=== PATIENT | female | born 1960 | race Caucasian/White ===

== ENCOUNTER 2016-10-30 16:14 | Inpatient (IN) | payer MEDICARE, MEDICAID ==
[~2016-10-30] VITALS: Ht 165.1 cm; Wt 110.0 kg
[2016-10-30] VITALS (13 sets, daily range): BP systolic 76–142; BP diastolic 44–84; PULSE 63–82; RESP 18–20; TEMP 97.6–98.4; O2SAT 95–99
[~2016-10-30 16:14] MED LIST: ABIL5TAB6 PO; ALBU1AER INH; ALLO100 PO; ATEN50 PO; ATOR40TA49 PO; COMMODE 3:1; CYMB30CA PO; DUONI INH; HCTZ25 PO; HYDR-3580 PO; ISOS30 PO; KCL10 PO; LOSA50 PO; LYRI150C PO; PRED10 PO; PROT40TA PO; TIOT18I INH; WHEELCHAIR RENTAL RA; Z.0.COMMODE-3:1; Z.0.CPM; Z.0.WALKERFRONT
--- NOTE | 2016-10-30 16:37 | PD ---
HPI Chief Complaint: Chest Pain Time Seen by Provider: 16:29 Travel History International Travel<30 days: No Contact w/Intl Traveler<30days: No Traveled to known affect area: No History of Present Illness HPI This 55-year-old female is complaining of chest pain. She says the pain started around 3 this afternoon. She has a history of coronary artery disease. She has stents placed on 2 occasions he thinks in 2002 2009 last 2 months she' s been having increasing chest pain. She generally gets relief with nitroglycerin but the nitroglycerin did not help today. She had a stress test yesterday at Dr. Garcia. She does smoke cigarettes. She has been short of breath. The pain does go up the left side of her neck PFS Past Medical History Arthritis: Yes (HIP/BILAT KNEES) Asthma: No Atrial Fibrillation: Yes Autoimmune Disease: No Blood Disorders: No Anxiety: Yes Depression: Yes Heart Rhythm Problems: Yes (a fib) Cancer: Yes (LEFT KIDNEY ) Cardiac Catheterization: Yes Cardiovascular Problems: Yes High Cholesterol: Yes Chemotherapy: No Chest Pain: No Congestive Heart Failure: No COPD: Yes Cerebrovascular Accident: No Coronary Artery Disease: Yes Diabetes: No Diminished Hearing: No Endocrine: No GERD: No Glaucoma: No Genitourinary: Yes Headaches: Yes Hepatitis: No Hiatal Hernia: No Hypertension: Yes Immune Disorder: No Implanted Vascular Access Dvce: Yes Kidney Stones: No Musculoskeletal: Yes (ARTHRITIS, OSTEOPOROSIS) Neurologic: No Psychiatric: Yes (ANXIETY/ DEPRESSION) Reproductive: No Respiratory: Yes Integumentary: Yes (BILAT LEGS/FEET SKIN GRAFT DONE R/T COLES) Immunizations Current: Yes Migraines: No Myocardial Infarction: No Radiation Therapy: No Renal Failure: No Seizures: No Sickle Cell Disease: No Sleep Apnea: Yes Thyroid Disease: No Ulcer: No Influenza Vaccination: Yes ?: Not Menopausal: Yes : 2 Para: 1 Miscarriage: 1 Ovarian Cysts: Yes Past Surgical History Abdominal Surgery: Yes (JEJUNAL ABSCESS EXC.) AICD: No Appendectomy: No Arteriovenous Shunt: No Body Medical Devices: CARDIAC STENTS Cardiac Surgery: Yes ( STENT PLACED/CARDIAC CATH FEB (CHEST PAIN CTR) ) Cholecystectomy: No Coronary Artery Bypass Graft: No Coronary Stent: Yes (2003 ONE STENT PLACED) Ear Surgery: No Endocrine Surgery: No Eye Surgery: No Genitourinary Surgery: Yes (PARTIAL LEFT NEPHRECTOMY) Gynecologic Surgery: Yes (LUMPECTOMY LT. BREAST BENIGN) Insulin Pump: No Joint Replacement: Yes (lt knee) Oral Surgery: No Pacemaker: No Thoracic Surgery: No Other Surgery: Yes (BILAT LEGS SKIN GRAFT BURN) Family History Family Myocardial Infarction: Yes (BROTHER, MOTHER, DAD) Social History Alcohol Use: Yes ("WEEKENDS") Tobacco Use: Yes (1/2 PPD) Substance Use: No Allergies-Medications (Allergen,Severity, Reaction): Coded Allergies: Bacitracin (Verified Allergy, Severe, Rash, 10/30/16) Darvocet-N 100 (Unverified Allergy, Severe, 10/30/16) Morphine (Verified Allergy, Severe, Itching, 10/30/16) *MDRO Multi-Drug Resistant Organism (Verified Adverse Reaction, Unknown, 07/11/15) 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 Nitrostat SL (Nitroglycerin) 0.4 Mg Subl 0.4 Mg SL DIRECTED PRN 1 tablet under the tongue as needed for chest pain. Repeat every 5 minutes for a total of 3 DOSES or call 911 if NO relief. Proair Hfa 8.5 GM Inh (Albuterol Sulfate) 90 Mcg/Act Aer 2 Puff INH Q6H PRN 108 mcg/actuation Zetia (Ezetimibe) 10 Mg Tab 10 Mg PO DAILY Abilify (Aripiprazole) 5 Mg Tab 5 Mg PO DAILY Symbicort Inh (Budesonide/Formoterol Fumarate) 80-4.5 Mcg/Act Aero 1 Puff INH Q12HR Atenolol 50 Mg Tab 50 Mg PO DAILY Atorvastatin (Atorvastatin Calcium) 40 Mg Tab 40 Mg PO DAILY Cymbalta DR (Duloxetine HCl) 30 Mg Capdr 30 Mg PO DAILY Lisinopril 10 Mg Tab 10 Mg PO DAILY Aspirin 325 Mg Tab 325 Mg PO DAILY Review of Systems General / Constitutional: No: Fever, Chills Eyes: No: Diploplia, Blurred Vision HENT: No: Headaches, Vertigo Cardiovascular: Positive: Chest Pain or Discomfort, No: Palpitations, Irregular Rhythm Respiratory: No: Cough, Shortness of Breath Gastrointestinal: No: Vomiting, Diarrhea Genitourinary: No: Urgency, Frequency Musculoskeletal: No: Myalgias, Arthralgias Skin: No Rash Neurologic: No: Weakness, Dizziness Hematologic/Lymphatic: No: Easy Bruising Physical Exam Narrative GENERAL: Well-developed female SKIN: Focused skin assessment warm/dry. HEAD: Atraumatic. Normocephalic. EYES: Pupils equal and round. No scleral icterus. No injection or drainage. ENT: No nasal bleeding or discharge. Mucous membranes pink and moist. NECK: Trachea midline. No JVD. CARDIOVASCULAR: Regular rate and rhythm. No murmur appreciated. RESPIRATORY: No accessory muscle use. Clear to auscultation. Breath sounds equal bilaterally. GASTROINTESTINAL: Abdomen soft, non-tender, nondistended. Hepatic and splenic margins not palpable. MUSCULOSKELETAL: No obvious deformities. No clubbing. No cyanosis. No edema. NEUROLOGICAL: Awake and alert. No obvious cranial nerve deficits. Motor grossly within normal limits. Normal speech. PSYCHIATRIC: Appropriate mood and affect; insight and judgment normal. Data Data Last Documented VS Vital Signs Date Time Temp Pulse Resp B/P Pulse Ox O2 Delivery O2 Flow Rate FiO2 10/30/16 17:09 69 18 106/68 97 Nasal Cannula 2 10/30/16 16:15 97.6 Orders Electrocardiogram (10/30/16 16:26) Complete Blood Count With Diff (10/30/16 16:26) Basic Metabolic Panel (Bmp) (10/30/16 16:26) Ckmb (Isoenzyme) Profile (10/30/16 16:26) Troponin I (10/30/16 16:26) Chest, Single Ap (10/30/16 16:26) Iv Access Insert/Monitor (10/30/16 16:26) Ecg Monitoring (10/30/16 16:26) Oxygen Administration (10/30/16 16:26) Oximetry (10/30/16 16:26) Prothrombin Time / Inr (Pt) (10/30/16 16:34) Act Partial Throm Time (Ptt) (10/30/16 16:34) Bilateral Bp Monitoring (10/30/16 16:34) Nitroglycerin 2% Oint (Nitroglycerin 2% (10/30/16 16:45) Sodium Chloride 0.9% Flush (Ns Flush) (10/30/16 16:45) Nitroglycerin Sl (Nitrostat Sl) (10/30/16 16:45) Ondansetron Inj (Zofran Inj) (10/30/16 16:45) Hydromorphone Pf Inj (Dilaudid Pf Inj) (10/30/16 16:45) Sodium Chlorid 0.9% 500 Ml Inj (Ns 500 M (10/30/16 17:00) Magnesium (Mg) (10/30/16 16:34) CKMB (10/30/16 16:34) CKMB% (10/30/16 16:34) Labs Laboratory Tests Test 10/30/16 16:34 White Blood Count 7.4 TH/MM3 Red Blood Count 5.06 MIL/MM3 Hemoglobin 15.0 GM/DL Hematocrit 45.9 % Mean Corpuscular Volume 90.7 FL Mean Corpuscular Hemoglobin 29.7 PG Mean Corpuscular Hemoglobin 32.8 % Concent Red Cell Distribution Width 13.1 % Platelet Count 237 TH/MM3 Mean Platelet Volume 8.5 FL Neutrophils (%) (Auto) 63.7 % Lymphocytes (%) (Auto) 27.8 % Monocytes (%) (Auto) 4.7 % Eosinophils (%) (Auto) 3.2 % Basophils (%) (Auto) 0.6 % Neutrophils # (Auto) 4.8 TH/MM3 Lymphocytes # (Auto) 2.1 TH/MM3 Monocytes # (Auto) 0.3 TH/MM3 Eosinophils # (Auto) 0.2 TH/MM3 Basophils # (Auto) 0.0 TH/MM3 CBC Comment DIFF FINAL Differential Comment Prothrombin Time 10.4 SEC Prothromb Time International 0.9 RATIO Ratio Activated Partial 27.8 SEC Thromboplast Time Sodium Level 143 MEQ/L Potassium Level 3.4 MEQ/L Chloride Level 106 MEQ/L Carbon Dioxide Level 26.7 MEQ/L Anion Gap 10 MEQ/L Blood Urea Nitrogen 5 MG/DL Creatinine 1.10 MG/DL Estimat Glomerular Filtration 51 ML/MIN Rate Random Glucose 213 MG/DL Calcium Level 8.6 MG/DL Magnesium Level 2.2 MG/DL Total Creatine Kinase 117 U/L Creatine Kinase MB 2.8 NG/ML Troponin I LESS THAN 0.02 NG/ML MDM Medical Decision Making Medical Screen Exam Complete: Yes Emergency Medical Condition: Yes Medical Record Reviewed: Yes Differential Diagnosis Differential includes atypical chest pain, unstable angina, and nSTEMI Narrative Course EKG shows ectopic atrial rhythm. There are no ST-T wave elevations. Patient was given nitroglycerin and Nitropaste and had a transient drop in her blood pressure. Lipase was removed. Patient continues to have pain off and on area I have discussed the case with Dr. Cody covering for Dr. He recommends transfer to [facility], heparin drip Diagnosis Primary Impression: Unstable angina Admitting Information Admitting Physician Requests: Admit Gideon Forbes MD Oct 30, 2016 16:37
[2016-10-30] MEDS ORDERED: NITR0.4S SL (16:44)
[2016-10-30] MEDS ORDERED: ALLO100T PO (16:44)
[2016-10-30] MEDS ORDERED: LISI10TA3 PO (16:44)
[2016-10-30] MEDS ORDERED: CYMB30CA PO (16:44)
[2016-10-30] MEDS ORDERED: ISOS20TA PO (16:44)
[2016-10-30] MEDS ORDERED: ABIL5TAB6 PO (16:44)
[2016-10-30] MEDS ORDERED: SPIRCAP INH (16:44)
[2016-10-30] MEDS ORDERED: SYMB80AE INH (16:44)
[2016-10-30] MEDS ORDERED: BUPR150CR PO (16:44)
[2016-10-30] MEDS ORDERED: ALBUAER3 INH (16:44)
[2016-10-30] MEDS ORDERED: ATOR40TA16 PO (16:44)
[2016-10-30] MEDS ORDERED: LYRI150C PO (16:44)
[2016-10-30] MEDS ORDERED: ATEN50TA PO (16:44)
[2016-10-30] MEDS ORDERED: ZETI10TA5 PO (16:44)
[2016-10-30] MEDS ORDERED: ASPI325T PO (16:44)
[2016-10-30] MEDS ORDERED: HYDROmorphone HCL PF 1 MG/ML VIAL IV PUSH ONE ×2 (16:45→21:00)
[2016-10-30] MEDS ORDERED: ONDANSETRON HCL 4 MG/2 ML VIAL IV PUSH ONE (16:45)
[2016-10-30] MEDS ORDERED: NITROGLYCERIN 0.4 MG SL 25 TABS/BTL SL ONE (16:45)
[2016-10-30] MEDS ORDERED: NITROGLYCERIN 2% OINT 1 GM PACKET TOP ONE (16:45)
[2016-10-30] MEDS ORDERED: SODIUM CHLORIDE 0.9% FLUSH 10 ML FLUSH IVF PRN (16:45)
[2016-10-30 16:47] LABS: AUTOMATED NEUTROPHIL # 4.8 TH/MM3 (1.8-7.7); BASOPHIL % 0.6 % (0.0-2.0); EOSINOPHIL # 0.2 TH/MM3 (0-0.4); EOSINOPHIL % 3.2 % (0.0-4.0); HEMATOCRIT 45.9 % (35.0-46.0); HEMO FLAGS DIFF FINAL; LYMPH % 27.8 % (9.0-44.0); LYMPHOCYTE # 2.1 TH/MM3 (1.0-4.8); MEAN CELL VOLUME 90.7 FL (80.0-100.0); MEAN CORPUSCULAR HEMOGLOBIN 29.7 PG (27.0-34.0); MEAN CORPUSCULAR HGB CONC 32.8 % (32.0-36.0); MONO % 4.7 % (0.0-8.0); NEUT % 63.7 % (16.0-70.0); PLATELET COUNT 237 TH/MM3 (150-450); RED BLOOD COUNT 5.06 MIL/MM3 (4.00-5.30); RED CELL DISTRIBUTION WIDTH 13.1 % (11.6-17.2); WHITE BLOOD COUNT 7.4 TH/MM3 (4.0-11.0)
--- NOTE | 2016-10-30 16:52 | RADHPO ---
EXAM DATE/TIME: 10/30/2016 16:37 [facility] COMPARISON: CHEST SINGLE AP, July 19, 2015, 5:45. INDICATIONS : Chest pain. MEDICAL HISTORY : Chronic obstructive pulmonary disease. Hypertension Coronary artery disease. SURGICAL HISTORY : None. ENCOUNTER: Initial ACUITY: 1 day PAIN SCORE: 8/10 LOCATION: Bilateral chest FINDINGS: A single view of the chest demonstrates the lungs to be symmetrically aerated without evidence of mas s, infiltrate or effusion. The cardiomediastinal contours are unremarkable. Osseous structures are intact. CONCLUSION: The lungs are clear. Catrachito Lara MD on October 30, 2016 at 16:50 Board Certified Radiologist. This report was verified electronically.
[2016-10-30 16:57] LABS: CHLORIDE 106 MEQ/L (98-107); POTASSIUM 3.4 MEQ/L (3.5-5.1); SODIUM (NA) 143 MEQ/L (136-145)
[2016-10-30 17:00] LABS: ANION GAP 10 MEQ/L (5-15); BICARBONATE 26.7 MEQ/L (21.0-32.0)
[2016-10-30] MEDS ORDERED: SODIUM CHLORID 0.9% 500 ML INJ 500 ML IV ONE (17:00)
[2016-10-30 17:01] LABS: BLOOD UREA NITROGEN 5 MG/DL (7-18)
[2016-10-30 17:04] LABS: GLOMERULAR FILTRATION RATE 51 ML/MIN (>89)
[2016-10-30 17:07] LABS: CREATINE KINASE 117 U/L (26-192)
[2016-10-30 17:11] LABS: MAGNESIUM 2.2 MG/DL (1.5-2.5)
[2016-10-30 17:19] LABS: CKMB 2.8 NG/ML (0.5-3.6)
[2016-10-30 17:24] LABS: APTT (PATIENT) 27.8 SEC (24.3-30.1); INTERNATIONAL NORMALIZED RATIO 0.9 RATIO; PROTHROMBIN TIME - PATIENT 10.4 SEC (9.8-11.6)
[2016-10-30] MEDS ORDERED: SODIUM CHLOR 0.45% 1000 ML INJ 1,000 ML IV SCH (17:41)
[2016-10-30] MEDS ORDERED: SODIUM CHLORIDE 0.9% FLUSH 10 ML FLUSH IV FLUSH PRN (17:45)
[2016-10-30] MEDS ORDERED: NALOXONE HCL 0.4 MG/ML AMP IV PRN (17:45)
[2016-10-30] MEDS ORDERED: HEPARIN SODIUM - IV 10,000 UNITS/10 ML VIAL IV ONE (17:45)
[2016-10-30] MEDS ORDERED: ONDANSETRON HCL 4 MG/2 ML VIAL IVP PRN (17:45)
[2016-10-30] MEDS ORDERED: HEPARIN-D5W INJ 250 ML IV SCH (17:45)
[2016-10-30] MEDS ORDERED: ALBUTEROL SULFATE 90 MCG/ACT HFA 18 GM INHALER INH PRN (18:00)
[2016-10-30] MEDS ORDERED: DEXTROSE 50% IN WATER 50 ML VIAL(D50) IV PUSH PRN (18:00)
[2016-10-30] MEDS ORDERED: GLUCAGON 1 MG/ML VIAL OTHER PRN (18:00)
[2016-10-30] MEDS ORDERED: NITROGLYCERIN 0.4 MG SL 25 TABS/BTL SL PRN (18:00)
[2016-10-30] MEDS: buPROPion HCL 150 MG SUSTAINED RELEASE TAB PO SCH (20:38)
[2016-10-30] MEDS: PREGABALIN 75 MG CAP PO SCH (20:39)
[2016-10-30] MEDS: BUDESONIDE-FORMOTEROL 80/4.5 MCG INHALER INH SCH (20:39)
[2016-10-30] MEDS: SODIUM CHLORIDE 0.9% FLUSH 10 ML FLUSH IV FLUSH SCH (20:39)
[2016-10-30] MEDS: INSULIN ASPART SUPPLEMENTAL SCALE SQ SCH (21:00)
--- NOTE | 2016-10-30 23:17 | EKG ---
Date Performed: 10/30/2016 Time Performed: 16:15:26 PTAGE: 55 years EKG: Possible ectopic atrial rhythm. Lateral ST changes are nonspecific Borderline ECG PREVIOUS TRACING : 07/14/2015 22.29 Compared to the previous tracing, previously had more exten sive non-specific ST/T wave changes DOCTOR: Ariel Kennedy Interpretating Date/Time 10/30/2016 23:16:49
[2016-10-30] MEDS ORDERED: HEPARIN SODIUM - IV 10,000 UNITS/10 ML VIAL IV PRN ×2 (23:45)
[2016-10-31 00:40] LABS: APTT (PATIENT) 33.6 SEC (24.3-30.1)
[2016-10-31 00:54] LABS: CREATINE KINASE 114 U/L (26-192)
[2016-10-31 03:00] VITALS: BP 93/47; PULSE 62; RESP 18; TEMP 98.6; O2SAT 97
[2016-10-31] MEDS ORDERED: POTASSIUM CHLOR 20 MEQ PREMIX 100 ML IV ONE (06:30)
[2016-10-31 08:00] VITALS: BP 196/104; PULSE 88; RESP 20; TEMP 99; O2SAT 93
[2016-10-31] MEDS: PREGABALIN 75 MG CAP PO SCH (08:29)
[2016-10-31] MEDS: buPROPion HCL 150 MG SUSTAINED RELEASE TAB PO SCH (08:29)
[2016-10-31] MEDS: SODIUM CHLORIDE 0.9% FLUSH 10 ML FLUSH IV FLUSH SCH (08:40)
--- NOTE | 2016-10-31 08:43 | PD.CONS ---
HPI Service Cardiology Physicians Consult Requested By Hospitalist Reason for Consult Chest Pain/Unstable Angina Primary Care Physician Fiona Myers History of Present Illness Ms. Sanders is a 55 year old known to our practice. She has a history of coronary artery disease S/P stent to the RCA in 2009, hyperlipidemia, hypertension, obesity who continues to smoke. She has poor functional tolerance and is borderline diabetic. She has had complaints of midsternal chest pain worsening over the last month. She underwent stress testing in the office on Saturday that revealed fixed inferior defect with no definite evidence of ischemia. She reports midsternal chest pain with sudden onset yesterday with radiation to her left upper chest and neck. She has some associated nausea. This pain was unrelieved by the sublingual nitro that she had which may have been according to her. Her boss called EMS and she was brought to the ED for further evaluation. She received sublingual nitro and IV dilaudid with resolution of the chest pain. She is currently pain free. Troponins were less than 0.02. CXR - No acute process. She is currently resting in bed without complaints. Review of Systems Consitutional: DENIES: Fatigue, Fever, Chills, Weight gain, Weight loss Eyes: DENIES: Amaurosis Fugax, Change in vision HEENT: DENIES: Lightheadedness, Change in hearing Respiratory: DENIES: See HPI, Cough, Snoring, Shortness of breath, Wheezing, Sputum production Cardiovascular: COMPLAINS OF: See HPI, Chest pain, DENIES: Palpitations, Syncope, Tachycardia Gastrointestinal: COMPLAINS OF: Nausea Genitourinary: DENIES: Urinary incontinence, Difficulty voiding Integumentary: DENIES: Rash Neurologic: DENIES: Tingling or numbness, Memory problems, Poor Balance, Stroke symptoms Musculoskeletal: DENIES: Joint pain, Muscle pain, Limited range of motion, Back pain Psychiatric: DENIES: Anxiety, Depression, Sleep disturbances Hematologic: DENIES: Bruising tendencies, Bleeding tendencies Endocrine: DENIES: Weight gain, Weight loss, Thyroid disease Past Family Social History Allergies: Coded Allergies: Bacitracin (Verified Allergy, Severe, Rash, 10/30/16) Darvocet-N 100 (Unverified Allergy, Severe, 10/30/16) Morphine (Verified Allergy, Severe, Itching, 4/18/17) Past Medical History CAD with unstable angina Essential Hypertension Mixed Hyperlipidemia PVD Past Surgical History Stent to the RCA 2009 Knee surgery Reported Medications Reported Meds & Active Scripts Active Reported Allopurinol 100 Mg Tab 200 Mg PO DAILY Spiriva Handihaler (Tiotropium Inh) 18 Mcg Cap 18 Mcg INH DAILY 1 capsule = 18 mcg Wellbutrin SR 12 HR (Bupropion HCl) 150 Mg Tab 150 Mg PO Q12HR Lyrica (Pregabalin) 150 Mg Cap 150 Mg PO BID Isosorbide Mononitrate 20 Mg Tab 30 Mg PO DAILY Take 2 doses 7 hours apart. Nitrostat SL (Nitroglycerin) 0.4 Mg Subl 0.4 Mg SL DIRECTED PRN 1 tablet under the tongue as needed for chest pain. Repeat every 5 minutes for a total of 3 DOSES or call 911 if NO relief. Proair Hfa 8.5 GM Inh (Albuterol Sulfate) 90 Mcg/Act Aer 2 Puff INH Q6H PRN 108 mcg/actuation Zetia (Ezetimibe) 10 Mg Tab 10 Mg PO DAILY Abilify (Aripiprazole) 5 Mg Tab 5 Mg PO DAILY Symbicort Inh (Budesonide/Formoterol Fumarate) 80-4.5 Mcg/Act Aero 1 Puff INH Q12HR Atenolol 50 Mg Tab 50 Mg PO DAILY Atorvastatin (Atorvastatin Calcium) 40 Mg Tab 40 Mg PO DAILY Cymbalta DR (Duloxetine HCl) 30 Mg Capdr 30 Mg PO DAILY Lisinopril 10 Mg Tab 10 Mg PO DAILY Aspirin 325 Mg Tab 325 Mg PO DAILY Active Ordered Medications Current Medications Medications (Trade) Dose Ordered Sig/Carlos Route Start Time Stop Time Status Last Admin (Heparin Inj) 5,000 units UNSCH PRN IV 10/30/16 23:45 Heparin Sodium (Porcine) 2500 units 2,500 units UNSCH PRN IV 10/30/16 23:45 10/31/16 02:32 (Heparin-D5W Inj) 250 ml @ 0 mls/hr TITRATE IV 10/30/16 17:45 10/30/16 18:10 (NS Flush) 2 ml UNSCH PRN IV FLUSH 10/30/16 17:45 (NS Flush) 2 ml BID IV FLUSH 10/30/16 21:00 (Zofran Inj) 4 mg Q6H PRN IVP 10/30/16 17:45 (Narcan Inj) 0.4 mg UNSCH PRN IV 10/30/16 17:45 (Ventolin Hfa Inh) 2 puff Q6H PRN INH 10/30/16 18:00 (Zyloprim) 200 mg DAILY PO 10/31/16 09:00 10/31/16 08:30 (Abilify) 5 mg DAILY PO 10/31/16 09:00 (Aspirin) 325 mg DAILY PO 10/31/16 09:00 10/31/16 08:30 (Tenormin) 50 mg DAILY PO 10/31/16 09:00 10/31/16 08:29 (Lipitor) 40 mg DAILY PO 10/31/16 09:00 10/31/16 08:29 (Symbicort 80-4.5 Mcg Inh) 1 puff Q12HR INH 10/30/16 21:00 10/30/16 20:39 (Wellbutrin Sr) 150 mg Q12HR PO 10/30/16 21:00 10/31/16 08:29 (Cymbalta Dr) 30 mg DAILY PO 10/31/16 09:00 10/31/16 08:29 (Zetia) 10 mg DAILY PO 10/31/16 09:00 10/31/16 08:29 (Ismo) 30 mg DAILY PO 10/31/16 09:00 10/31/16 08:29 (Prinivil) 10 mg DAILY PO 10/31/16 09:00 (Lyrica) 150 mg BID PO 10/30/16 21:00 10/31/16 08:29 (Spiriva Inh) 18 mcg DAILY INH 10/31/16 09:00 (D50w (Vial) Inj) 25 ml UNSCH PRN IV PUSH 10/30/16 18:00 Glucagon 1 mg 1 mg UNSCH PRN OTHER 10/30/16 18:00 (KCl Inj/1/2 NS 1000 ml Inj) 1,020 ml @ 125 mls/hr Q8H10M IV 10/31/16 17:41 Family History Father age 41 with CAD Mother age 85 with CAD Social History Current smoker Moderate ETOH Caffeine 2 servings/day disabled Physical Exam Vital Signs Vital Signs Date Time Temp Pulse Resp B/P Pulse Ox O2 Delivery O2 Flow Rate FiO2 10/31/16 03:00 98.6 62 18 93/47 97 10/30/16 21:52 97 21 10/30/16 21:39 98.4 63 18 119/80 96 10/30/16 20:58 68 17 142/71 98 Nasal Cannula 10/30/16 20:00 67 19 133/69 97 Nasal Cannula 10/30/16 19:15 66 18 122/76 99 Nasal Cannula 2 10/30/16 19:07 Nasal Cannula 2 10/30/16 18:42 64 18 140/72 96 Nasal Cannula 2 10/30/16 18:13 18 10/30/16 17:49 70 137/77 128/78 10/30/16 17:40 75 18 137/77 98 Nasal Cannula 2 10/30/16 17:09 69 18 106/68 97 Nasal Cannula 2 10/30/16 17:00 69 18 84/49 98 Nasal Cannula 2 10/30/16 16:57 72 18 76/44 99 Nasal Cannula 2 10/30/16 16:30 95 Room Air 10/30/16 16:30 96 Room Air 10/30/16 16:26 82 96 Room Air 10/30/16 16:15 97.6 82 20 133/84 95 Physical Exam GENERAL: SKIN: Warm and dry. HEAD: Atraumatic. Normocephalic. EYES: Pupils equal and round. No scleral icterus. No injection or drainage. ENT: No nasal bleeding or discharge. Mucous membranes pink and moist. NECK: Trachea midline. No JVD. CARDIOVASCULAR: Regular rate and rhythm. RESPIRATORY: No accessory muscle use. Clear to auscultation. Breath sounds equal bilaterally. GASTROINTESTINAL: Abdomen soft, non-tender, nondistended. . MUSCULOSKELETAL: Extremities without clubbing, cyanosis, or edema. No obvious deformities. NEUROLOGICAL: Awake and alert. No obvious cranial nerve deficits. Motor grossly within normal limits. Five out of 5 muscle strength in the arms and legs. Normal speech. PSYCHIATRIC: Appropriate mood and affect; insight and judgment normal. Laboratory Laboratory Tests Test 10/30/16 10/30/16 16:34 23:53 White Blood Count 7.4 Red Blood Count 5.06 Hemoglobin 15.0 Hematocrit 45.9 Mean Corpuscular Volume 90.7 Mean Corpuscular Hemoglobin 29.7 Mean Corpuscular Hemoglobin 32.8 Concent Red Cell Distribution Width 13.1 Platelet Count 237 Mean Platelet Volume 8.5 Neutrophils (%) (Auto) 63.7 Lymphocytes (%) (Auto) 27.8 Monocytes (%) (Auto) 4.7 Eosinophils (%) (Auto) 3.2 Basophils (%) (Auto) 0.6 Neutrophils # (Auto) 4.8 Lymphocytes # (Auto) 2.1 Monocytes # (Auto) 0.3 Eosinophils # (Auto) 0.2 Basophils # (Auto) 0.0 CBC Comment DIFF FINAL Differential Comment Prothrombin Time 10.4 Prothromb Time International 0.9 Ratio Activated Partial 27.8 33.6 Thromboplast Time Sodium Level 143 Potassium Level 3.4 Chloride Level 106 Carbon Dioxide Level 26.7 Anion Gap 10 Blood Urea Nitrogen 5 Creatinine 1.10 Estimat Glomerular Filtration 51 Rate Random Glucose 213 Calcium Level 8.6 Magnesium Level 2.2 Total Creatine Kinase 117 114 Creatine Kinase MB 2.8 Troponin I LESS THAN 0.02 LESS THAN 0.02 Result Diagram: 10/30/16 1634 10/30/16 1634 Assessment and Plan Assessment and Plan CAD S/P Stent to RCA 2009 with Unstable Angina Hypertension Hyperlipidemia Office stress test from Saturday with no definite evidence of ischemia. Will stop IV Heparin. Add Ranexa. Replace potassium. Continue aspirin, beta petey , LINDA, statin and nitrates. Ambulate patient and monitor. Possible discharge later today or tomorrow if remains stable. Code Status Full Discussed Condition With Racquel Sorto Oct 31, 2016 08:43
[2016-10-31] MEDS ORDERED: ARIPiprazole 5 MG TAB PO SCH (09:00)
[2016-10-31] MEDS ORDERED: ASPIRIN 325 MG TAB PO SCH (09:00)
[2016-10-31] MEDS ORDERED: ISOSORBIDE MONONITRATE 20 MG TAB PO SCH (09:00)
[2016-10-31] MEDS ORDERED: TIOTROPIUM BROMIDE 18 MCG INH INH SCH (09:00)
[2016-10-31] MEDS ORDERED: EZETIMIBE 10 MG TAB PO SCH (09:00)
[2016-10-31] MEDS ORDERED: LISINOPRIL 10 MG TAB PO SCH (09:00)
[2016-10-31] MEDS ORDERED: ALLOPURINOL 100 MG TAB PO SCH (09:00)
[2016-10-31] MEDS ORDERED: DULoxetine HCl DR 30 MG CAP PO SCH (09:00)
[2016-10-31] MEDS ORDERED: ATENOLOL 50 MG TAB PO SCH (09:00)
[2016-10-31] MEDS ORDERED: FAMOTIDINE 20 MG TAB PO SCH (09:00)
[2016-10-31] MEDS ORDERED: ATORVASTATIN 40 MG TAB PO SCH (09:00)
[2016-10-31] MEDS: BUDESONIDE-FORMOTEROL 80/4.5 MCG INHALER INH SCH (09:04)
[2016-10-31] MEDS ORDERED: RANOLAZINE 500 MG EXTENDED RELEASE TAB PO SCH (09:15)
--- NOTE | 2016-10-31 09:31 | MH ---
cc: GERTRUDE JIMENEZ MD DATE OF ADMISSION 10/30/2016 DATE OF [address] Jimenez CHIEF COMPLAINT Chest pain TRAVEL No travel in the last 30 days. HISTORY OF PRESENT ILLNESS This is a 55-year-old white female who initially started having chest time the day before yesterday with intensity. The patient does state that she has been having some increased pain off and on for the past couple of months, but she could take nitroglycerin and the pain would be relieved. Over the past few days, the pain has not relieved with nitroglycerin and she saw her physician Dr. Garcia and had a stress test the day before yesterday. The patient states that the test was normal to her knowledge, but she continues to have chest pain so she came to the emergency room for further evaluation. The patient is noted to have some nausea and vomiting. She immediately became nauseated when arousing this morning and complained of belching and an epigastric sensation. She is also positive for reflux this a.m. and heartburn. The patient does have a significant history of heart disease. She has continued to smoke approximately a pack a days cigarettes since her early teenage years and she has had a history of cardiac stents in the past. The patient states that she has been taking her medications as prescribed until yesterday when she came in evaluation. The patient denies any diarrhea or constipation, no headaches. She does complain of shortness of breath, nausea, vomiting, burping and bloating. PAST MEDICAL HISTORY 1. Arthritis especially in her hip and knees 2. Atrial fibrillation 3. Anxiety, depression 4. Left kidney cancer 5. Hyperlipidemia 6. COPD 7. Coronary artery disease 8. Headaches 9. Hypertension 10. Osteoporosis 11. Anxiety, depression 12. Ovarian cyst 13. Sleep apnea PAST SURGICAL HISTORY 1. Jejunal abscess excision 2. Cardiac stents 3. Cardiac catheterization April of 2003 and 2003 4. Cardiac status possibly according to the record 2009 5. Skin graft done for skinner on her legs and feet bilateral 6. Partial left nephrectomy 7. Lumpectomy left breast from a benign cyst. 8. Joint replacement left knee ALLERGIES BACITRACIN OINTMENT, DARVOCET, MORPHINE, MDRO, MULTI-RESISTANT ORGANISM, ACETOBACTRAM, BAUMANNII IN 05/19. REPORTED MEDICATIONS 1. Allopurinol 1. Spiriva inhaler 2. Wellbutrin 3. Lyrica 4. Isosorbide 5. Nitroglycerin sublingual 6. ProAir 7. Zetia 8. Abilify 9. Symbicort 10. Atenolol 11. Atorvastatin 12. Cymbalta 13. Lisinopril 14. Aspirin SOCIAL HISTORY The patient is single. Currently has a female roommate sharing her expenses. She is positive for a pack a day smoker since her teenage years. She is a vodka drinker weekly. According to the history, weekends, but she states more often, but not every day. REVIEW OF SYSTEMS A 12-point review was done. Positives noted in the HPI which includes her chest pain, bloating, nausea, vomiting, shortness of breath. The patient notes a recent ear infection, bilateral ear infection in which she is using Cortisporin drops that she already had at home. PHYSICAL EXAM VITAL SIGNS: Temp is 97.6, pulse 69, respirations 18, blood pressure 106/68, pulse ox 97, O2 at two liters nasal cannula. Blood pressure has been as high as 142/71 and as low as 93/47. GENERAL: An obese white female who looks older than her stated age, actively nauseated with belching when awakened. SKIN: [place], oma, warm and dry. HEAD, EYES, EARS, NOSE, AND THROAT: Atraumatic, normocephalic. [place] mucous membranes, moist. No scleral icterus, PERRLA. NECK: Supple. CARDIOVASCULAR: S1 and S2. Rhythm is regular. No murmurs, rubs or gallops audible. RESPIRATORY: Essentially clear anteriorly and posteriorly without wheezes, rales or rhonchi. GI: Abdomen is round and soft nontender, nondistended. Active bowel sounds in all four quads. MUSCULOSKELETAL: She moves her extremities with purpose. She has no lower extremity edema. No clubbing. NEUROLOGIC: She is awake, oriented, a good historian. Speech is clear and normal, mild anxiety noted over her current condition. PSYCHIATRIC: Appropriate mood and affect. DIAGNOSTIC DATA WBC count 7.4, RBC 5.06, hemoglobin 15, hematocrit 45.9, platelet count 237, neutrophil auto-percentage 63.7, lymphocytes, 27.8. Sodium 143, potassium 3.4, chloride 106, carbon dioxide 26.7, amnion gap 10, BUN 5, creatinine 1.1, GFR 51, random glucose 213, magnesium 2.2, calcium 8.6, troponin's are less than 0.02. Total creatinine kinase 114, PT/INR is 0.9. IMAGING STUDIES Chest x-ray is clear. ASSESSMENT/PLAN 1. Chest pain atypical, rule out any further cardiac events. A list if they rule out PA or CAD. 2. Hyperglycemia nondiabetic 3. Hypertension, hyperlipidemia 4. Obesity 5. COPD 6. Acute kidney injury 7. Hypokalemia 8. GERD PLAN 1. We will place her on some Pepcid p.o. 2. Place her in contact isolation secondary to her MDRO, notes in the medical record. 3. The patient is on a heparin drip. 4. Inpatient status 5. ALEKS's and SCD's for DVT prophylaxis 6. Gentle hydration 7. 1800 calorie ADA diet 8. We will monitor Accu-Chek's while in the hospital even though the patient is not a known diabetic. She does state That she has been told she is borderline in the past. 9. Reconcile her medications. 10. Pain management 11. One dose of potassium. 12. We will review her labs in the morning. The patient is full code, full aggressive care and we will follow. Dictated by: FABY Guthrie MD JUSTIN Mahajan/SILVANA /8:24 AM /8:53 AM
[2016-10-31 09:32] LABS: AUTOMATED NEUTROPHIL # 4.7 TH/MM3 (1.8-7.7); BASOPHIL % 0.6 % (0.0-2.0); EOSINOPHIL # 0.2 TH/MM3 (0-0.4); EOSINOPHIL % 2.4 % (0.0-4.0); HEMO FLAGS DIFF FINAL; LYMPH % 27.6 % (9.0-44.0); LYMPHOCYTE # 2.1 TH/MM3 (1.0-4.8); MEAN CELL VOLUME 91.8 FL (80.0-100.0); MEAN CORPUSCULAR HEMOGLOBIN 30.3 PG (27.0-34.0); MONO % 6.8 % (0.0-8.0); NEUT % 62.6 % (16.0-70.0); PLATELET COUNT 195 TH/MM3 (150-450); RED BLOOD COUNT 4.57 MIL/MM3 (4.00-5.30); RED CELL DISTRIBUTION WIDTH 13.7 % (11.6-17.2); WHITE BLOOD COUNT 7.5 TH/MM3 (4.0-11.0)
[2016-10-31 10:12] LABS: BICARBONATE 34.1 MEQ/L (21.0-32.0); MAGNESIUM 2.3 MG/DL (1.5-2.5); POTASSIUM 3.6 MEQ/L (3.5-5.1)
[2016-10-31 10:15] LABS: INDIRECT BILIRUBIN 0.2 MG/DL (0.0-0.8); TOTAL BILIRUBIN ADULT 0.3 MG/DL (0.2-1.0)
[2016-10-31] MEDS: INSULIN ASPART SUPPLEMENTAL SCALE SQ SCH (11:00)
[2016-10-31 11:12] LABS: APTT (PATIENT) 31.2 SEC (24.3-30.1)
--- NOTE | 2016-10-31 14:09 | HP.UPD ---
H&P Update Note This is a very pleasant 55-year-old female with problems with obesity , obstructive sleep apnea and active smoking. She came into the emergency department at [facility]. There was concern about acute coronary syndrome therefore she was transferred to the main campus on IV heparin drip. She was seen by her supervisor riveting this morning and recommendation for her was to She was seen and examined by the undersigned to . Add Ranexa. Replace potassium. Continue aspirin, beta petey, LINDA, statin and nitrates She was referred for outpatient evaluation with pulmonology to get a Cpap machine. She was counseled against smoking. She has been discharged home in stable condition Ben Nix MD Oct 31, 2016 14:06
[2016-10-31] MEDS ORDERED: RANO500 PO (14:12)
--- NOTE | 2016-10-31 14:14 | HHI.DS ---
Discharge Summary Admission Date Oct 30, 2016 at 17:43 Admitting Diagnosis UNSTABLE ANGINA CBC/BMP: 10/31/16 0837 10/31/16 0837 Significant Findings Laboratory Tests Test 10/30/16 10/30/16 10/31/16 10/31/16 16:34 23:53 08:37 10:03 Potassium Level 3.4 MEQ/L (3.5-5.1) Blood Urea Nitrogen 5 MG/DL (7-18) Creatinine 1.10 MG/DL 1.16 MG/DL (0.50-1.00) (0.50-1.00) Estimat Glomerular Filtration 51 ML/MIN (>89) 48 ML/MIN (>89) Rate Random Glucose 213 MG/DL 118 MG/DL (74-106) (74-106) Troponin I LESS THAN 0.02 LESS THAN 0.02 NG/ML NG/ML (0.02-0.05) (0.02-0.05) Activated Partial 33.6 SEC 31.2 SEC Thromboplast Time (24.3-30.1) (24.3-30.1) Carbon Dioxide Level 34.1 MEQ/L (21.0-32.0) Albumin 3.3 GM/DL (3.4-5.0) Hospital Course This is a very pleasant 55-year-old female with problems with obesity , obstructive sleep apnea and active smoking. She came into the emergency department at [facility]. There was concern about acute coronary syndrome therefore she was transferred to the main [place] on IV heparin drip. She was seen by her online content coordinator this morning and recommendation for her was to She was seen and examined by the undersigned to . Add Ranexa. Replace potassium. Continue aspirin, beta petey, LINDA, statin and nitrates She was referred for outpatient evaluation with pulmonology to get a Cpap machine. She was counseled against smoking. She has been discharged home in stable condition Pt Condition on Discharge: Stable Discharge Disposition: Discharge Home Discharge Instructions DIET: Follow Instructions for: Heart Healthy Diet Additional Diet Instructions: Low-calorie Activities you can perform: Weight Bearing as Josse Additional Activity Instructio: Discontinue smoking, needs lose weight, average 1 kilogram per month for the next year If unsuccessful consider bariatric evaluation Ben Nix MD Oct 31, 2016 14:14
[2016-10-31] MEDS ORDERED: POTA-163 PO (14:15)
[2016-10-31] MEDS ORDERED: POTASSIUM CHLORIDE INJ 40 MEQ in SODIUM CHLOR 0.45% 1000 ML INJ 1,000 ML IV SCH (17:41)
== END 2016-10-31 15:37 | disposition home or self-care (01) | DRG 303 ==
LOC: PHED 16:14 → PHEDA 17:43 → HCIS 21:27
PROVIDERS: ADMIT Specialist; ATTEND Specialist
DX: I25.110 Atherosclerotic heart disease of native coronary artery with unstable angina pectoris (principal); N17.9 Acute kidney failure, unspecified; Z68.41 Body mass index [BMI] 40.0-44.9, adult; J44.9 Chronic obstructive pulmonary disease, unspecified; F17.210 Nicotine dependence, cigarettes, uncomplicated; I10 Essential (primary) hypertension; I48.91 Unspecified atrial fibrillation; M17.0 Bilateral primary osteoarthritis of knee; M81.0 Age-related osteoporosis without current pathological fracture; F41.9 Anxiety disorder, unspecified; F32.9 Major depressive disorder, single episode, unspecified; K21.9 Gastro-esophageal reflux disease without esophagitis; E66.9 Obesity, unspecified; E78.2 Mixed hyperlipidemia; R73.03 Prediabetes; E87.6 Hypokalemia; G47.33 Obstructive sleep apnea (adult) (pediatric); Z95.5 Presence of coronary angioplasty implant and graft; Z85.528 Personal history of other malignant neoplasm of kidney
CPT/HCPCS: 71010; 80048; 80076; 82550; 82552; 82948; 83735; 84100; 84484; 85025; 85610; 85730; 93005; 96361; 96374; J1170; J1644; J2405; J3480; J7040

== ENCOUNTER 2016-11-18 19:00 | Emergency (ER) | payer MEDICARE, MEDICAID ==
[~2016-11-18] VITALS: Ht 165.1 cm; Wt 110.0 kg
[~2016-11-18 19:00] MED LIST changes: -ALBU1AER INH; +ALBUAER3 INH; -ALLO100 PO; +ALLO100T PO; +ASPI325T PO; -ATEN50 PO; +ATEN50TA PO; +ATOR40TA16 PO; -ATOR40TA49 PO; +BUPR150CR PO; -COMMODE 3:1; -DUONI INH; -HCTZ25 PO; -HYDR-3580 PO; +ISOS20TA PO; -ISOS30 PO; -KCL10 PO; +LISI10TA3 PO; -LOSA50 PO; +NITR0.4S SL; +POTA-163 PO; -PRED10 PO; -PROT40TA PO; +RANO500 PO; +SPIRCAP INH; +SYMB80AE INH; -TIOT18I INH; -WHEELCHAIR RENTAL RA; -Z.0.COMMODE-3:1; -Z.0.CPM; -Z.0.WALKERFRONT; +ZETI10TA5 PO
[2016-11-18 19:02] VITALS: BP 181/95; PULSE 87; RESP 18; TEMP 98.4; O2SAT 98
[2016-11-18] MEDS ORDERED: SODIUM CHLORIDE 0.9% FLUSH 10 ML FLUSH IVF PRN (19:45)
[2016-11-18] MEDS ORDERED: methylPREDNISolone SOD SUCC 125 MG/2 ML VIAL IVP ONE (19:45)
--- NOTE | 2016-11-18 19:45 | PD ---
HPI Chief Complaint: Respiratory Symptoms Time Seen by Provider: 19:42 Travel History International Travel<30 days: No Contact w/Intl Traveler<30days: No Traveled to known affect area: No History of Present Illness HPI Patient is a 55-year-old female presenting to emergency for evaluation of shortness of breath and dizziness. Patient states it started while she was at work today. Patient reports a history of COPD, hypertension. She states that she used her inhaler with no relief of symptoms. She denies any chest pain, headache, abdominal pain, nausea, vomiting, fever or chills. PFSH Past Medical History Hx Anticoagulant Therapy: Yes Arthritis: Yes (HIP/BILAT KNEES) Asthma: No Atrial Fibrillation: Yes Autoimmune Disease: No Blood Disorders: No Anxiety: Yes Depression: Yes Heart Rhythm Problems: Yes Cancer: Yes (LEFT KIDNEY ) Cardiac Catheterization: Yes High Cholesterol: Yes Chemotherapy: No Chest Pain: No Congestive Heart Failure: No COPD: Yes Cerebrovascular Accident: No Coronary Artery Disease: Yes Diabetes: No Diminished Hearing: No Endocrine: No GERD: No Glaucoma: No Genitourinary: Yes Headaches: Yes Hepatitis: No Hiatal Hernia: No Hypertension: Yes Immune Disorder: No Implanted Vascular Access Dvce: Yes Kidney Stones: No Neurologic: No Reproductive: No Immunizations Current: Yes Migraines: No Myocardial Infarction: No Radiation Therapy: No Renal Failure: No Seizures: No Sickle Cell Disease: No Sleep Apnea: Yes Thyroid Disease: No Ulcer: No ?: Not Menopausal: Yes : 2 Para: 1 Miscarriage: 1 Ovarian Cysts: Yes Past Surgical History Abdominal Surgery: Yes (JEJUNAL ABSCESS EXC.) AICD: No Appendectomy: No Arteriovenous Shunt: No Body Medical Devices: CARDIAC STENTS Cardiac Surgery: Yes ( STENT PLACED/CARDIAC CATH AUG (CHEST PAIN CTR) ) Cholecystectomy: No Coronary Artery Bypass Graft: No Coronary Stent: Yes (2003 ONE STENT PLACED) Ear Surgery: No Endocrine Surgery: No Eye Surgery: No Genitourinary Surgery: Yes (PARTIAL LEFT NEPHRECTOMY) Gynecologic Surgery: Yes (LUMPECTOMY LT. BREAST BENIGN) Insulin Pump: No Joint Replacement: Yes (KNEE) Oral Surgery: No Pacemaker: No Thoracic Surgery: No Other Surgery: Yes (BILAT LEGS SKIN GRAFT BURN) Social History Alcohol Use: Yes ("WEEKENDS") Tobacco Use: Yes (/2 PPD) Substance Use: No Allergies-Medications (Allergen,Severity, Reaction): Coded Allergies: Bacitracin (Verified Allergy, Severe, Rash, 11/18/16) Darvocet-N 100 (Unverified Allergy, Severe, 11/18/16) Morphine (Verified Allergy, Severe, Itching, 11/18/16) Reported Meds & Prescriptions Reported Meds & Active Scripts Active Prednisone 50 Mg Tab 50 Mg PO DAILY Potassium Chloride ER (Potassium Chloride) 20 Meq Tab 20 Meq PO DAILY Ranexa ER 12 HR (Ranolazine) 500 Mg Tab 500 Mg PO Q12HR Reported Allopurinol 100 Mg Tab 200 Mg PO DAILY Spiriva Handihaler (Tiotropium Inh) 18 Mcg Cap 18 Mcg INH DAILY 1 capsule = 18 mcg Wellbutrin SR 12 HR (Bupropion HCl) 150 Mg Tab 150 Mg PO Q12HR Lyrica (Pregabalin) 150 Mg Cap 150 Mg PO BID Isosorbide Mononitrate 20 Mg Tab 30 Mg PO DAILY Take 2 doses 7 hours apart. Nitrostat SL (Nitroglycerin) 0.4 Mg Subl 0.4 Mg SL DIRECTED PRN 1 tablet under the tongue as needed for chest pain. Repeat every 5 minutes for a total of 3 DOSES or call 911 if NO relief. Proair Hfa 8.5 GM Inh (Albuterol Sulfate) 90 Mcg/Act Aer 2 Puff INH Q6H PRN 108 mcg/actuation Zetia (Ezetimibe) 10 Mg Tab 10 Mg PO DAILY Abilify (Aripiprazole) 5 Mg Tab 5 Mg PO DAILY Symbicort Inh (Budesonide/Formoterol Fumarate) 80-4.5 Mcg/Act Aero 1 Puff INH Q12HR Atenolol 50 Mg Tab 50 Mg PO DAILY Atorvastatin (Atorvastatin Calcium) 40 Mg Tab 40 Mg PO DAILY Cymbalta DR (Duloxetine HCl) 30 Mg Capdr 30 Mg PO DAILY Lisinopril 10 Mg Tab 10 Mg PO DAILY Aspirin 325 Mg Tab 325 Mg PO DAILY Review of Systems Except as stated in HPI: all other systems reviewed are Neg Respiratory: Positive: Shortness of Breath, Pleuritic Pain Neurologic: Positive: Dizziness Physical Exam Narrative GENERAL:, Well-developed, alert female. Resting in no acute distress. SKIN: Focused skin assessment warm/dry. HEAD: Atraumatic. Normocephalic. EYES: Pupils equal and round. No scleral icterus. No injection or drainage. ENT: No nasal bleeding or discharge. Mucous membranes pink and moist. NECK: Trachea midline. No JVD. CARDIOVASCULAR: Regular rate and rhythm. No murmur appreciated. RESPIRATORY: Scattered expiratory wheezing with diminished lung sounds in bases. GASTROINTESTINAL: Abdomen soft, non-tender, nondistended. Hepatic and splenic margins not palpable. MUSCULOSKELETAL: No obvious deformities. No clubbing. No cyanosis. No edema. NEUROLOGICAL: Awake and alert. No obvious cranial nerve deficits. Motor grossly within normal limits. Normal speech. PSYCHIATRIC: Appropriate mood and affect; insight and judgment normal. Data Data Last Documented VS Vital Signs Date Time Temp Pulse Resp B/P Pulse Ox O2 Delivery O2 Flow Rate FiO2 11/18/16 22:28 81 18 188/89 95 11/18/16 20:46 Aerosol Mask 11/18/16 20:30 2 11/18/16 19:02 98.4 Orders Complete Blood Count With Diff (11/18/16 19:33) Basic Metabolic Panel (Bmp) (11/18/16 19:33) Iv Access Insert/Monitor (11/18/16 19:33) Ecg Monitoring (11/18/16 19:33) Oximetry (11/18/16 19:33) Oxygen Administration (11/18/16 19:33) Chest, Single Ap (11/18/16 19:33) Sodium Chloride 0.9% Flush (Ns Flush) (11/18/16 19:45) Methylprednisolone So Succ Inj (Solumedr (11/18/16 19:45) Albuterol-Ipratropium Neb (Duoneb Neb) (11/18/16 19:45) Budesonide Neb (Pulmicort Respule Neb) (11/18/16 21:00) Labs Laboratory Tests Test 11/18/16 20:25 White Blood Count 6.4 TH/MM3 Red Blood Count 4.73 MIL/MM3 Hemoglobin 14.2 GM/DL Hematocrit 42.8 % Mean Corpuscular Volume 90.4 FL Mean Corpuscular Hemoglobin 30.1 PG Mean Corpuscular Hemoglobin 33.3 % Concent Red Cell Distribution Width 13.6 % Platelet Count 222 TH/MM3 Mean Platelet Volume 8.1 FL Neutrophils (%) (Auto) 57.7 % Lymphocytes (%) (Auto) 30.7 % Monocytes (%) (Auto) 5.5 % Eosinophils (%) (Auto) 4.2 % Basophils (%) (Auto) 1.9 % Neutrophils # (Auto) 3.7 TH/MM3 Lymphocytes # (Auto) 2.0 TH/MM3 Monocytes # (Auto) 0.4 TH/MM3 Eosinophils # (Auto) 0.3 TH/MM3 Basophils # (Auto) 0.1 TH/MM3 CBC Comment DIFF FINAL Differential Comment Sodium Level 143 MEQ/L Potassium Level 3.7 MEQ/L Chloride Level 105 MEQ/L Carbon Dioxide Level 32.2 MEQ/L Anion Gap 6 MEQ/L Blood Urea Nitrogen 5 MG/DL Creatinine 1.01 MG/DL Estimat Glomerular Filtration 56 ML/MIN Rate Random Glucose 134 MG/DL Calcium Level 9.2 MG/DL MDM Medical Decision Making Medical Screen Exam Complete: Yes Emergency Medical Condition: Yes Interpretation(s) Vital Signs Date Time Temp Pulse Resp B/P Pulse Ox O2 Delivery O2 Flow Rate FiO2 11/18/16 19:02 98.4 87 18 181/95 98 Room Air Differential Diagnosis Bronchitis versus pneumonia versus COPD exacerbation versus other Narrative Course Patient is a 55-year-old female presented for evaluation of shortness of breath and dizziness. Patient is a history of COPD, she used her albuterol inhaler with no relief of symptoms. She is a current daily smoker. Chest x-ray, nebulizers, labs ordered and pending. Patient reports improvement after nebulizer treatments. CBC is unremarkable Chemistry and chest x-ray are pending. Chest x-ray shows no acute disease, chemistries unremarkable. Patient's oxygen saturation is 99% on room air. Her vital signs are stable. Patient will be discharged home on steroids and antibiotics. She is encouraged to continue with her home allergies as previously prescribed. She'll return to emergency department for any new or worsening symptoms. She has appointments with her primary doctor on Saturday. She was advised to keep this appointment. Patient verbalized understanding of these instructions. Diagnosis Primary Impression: COPD exacerbation Referrals: Primary Care Physician 2 days Patient Instructions: COPD (Chronic Obstructive Pulmonary Disease) (ED), General Instructions Additional Instructions: Follow-up with her primary doctor Take medications as directed Avoid smoking cigarettes Return to emergency department for any new or worsening symptoms Med/Other Pt SpecificInfo: Prescription(s) given Scripts Prednisone 50 Mg Tab50 Mg PO DAILY #5 TAB Ref 0 Prov:Dominique Cast 11/18/16 Disposition: 01 DISCHARGE HOME Condition: Stable Dominique Cast November 18, 2016 19:45
[2016-11-18] MEDS: RESP: ALBUTEROL 2.5 MG/IPRATROPIUM 0.5 MG NEB (SCH) INH ×2 (20:13→20:14)
[2016-11-18 20:30] VITALS: RESP 21; O2SAT 97
[2016-11-18 20:35] LABS: AUTOMATED NEUTROPHIL # 3.7 TH/MM3 (1.8-7.7); BASOPHIL # 0.1 TH/MM3 (0-0.2); BASOPHIL % 1.9 % (0.0-2.0); EOSINOPHIL # 0.3 TH/MM3 (0-0.4); EOSINOPHIL % 4.2 % (0.0-4.0); HEMATOCRIT 42.8 % (35.0-46.0); HEMO FLAGS DIFF FINAL; LYMPH % 30.7 % (9.0-44.0); MEAN CELL VOLUME 90.4 FL (80.0-100.0); MEAN CORPUSCULAR HEMOGLOBIN 30.1 PG (27.0-34.0); MEAN CORPUSCULAR HGB CONC 33.3 % (32.0-36.0); MONO % 5.5 % (0.0-8.0); NEUT % 57.7 % (16.0-70.0); PLATELET COUNT 222 TH/MM3 (150-450); RED BLOOD COUNT 4.73 MIL/MM3 (4.00-5.30); RED CELL DISTRIBUTION WIDTH 13.6 % (11.6-17.2); WHITE BLOOD COUNT 6.4 TH/MM3 (4.0-11.0)
[2016-11-18 20:45] VITALS: BP 184/89; PULSE 74; RESP 20; O2SAT 100
[2016-11-18] MEDS ORDERED: PRED50 PO (21:00)
[2016-11-18] MEDS ORDERED: RESP: BUDESONIDE 0.5 MG/2 ML NEB NEB ONE (21:00)
[2016-11-18] MEDS ORDERED: AZIT250T3 PO (21:00)
--- NOTE | 2016-11-18 21:39 | RADRPT ---
EXAM DATE/TIME: 11/18/2016 20:12 [facility] COMPARISON: CHEST SINGLE AP, October 30, 2016, 16:37. INDICATIONS : Short of Breath MEDICAL HISTORY : Chronic obstructive pulmonary disease. Hypertension Coronary artery disease SURGICAL HISTORY : None. ENCOUNTER: Initial ACUITY: 1 day PAIN SCORE: 0/10 LOCATION: Bilateral chest FINDINGS: A single view of the chest demonstrates the lungs to be symmetrically aerated without evidence of mas s, infiltrate or effusion. The cardiomediastinal contours are unremarkable. Osseous structures are intact. CONCLUSION: 1. No acute findings. Minimal basilar atelectasis. Zhang Ramos MD on November 18, 2016 at 21:35 Board Certified Radiologist. This report was verified electronically.
[2016-11-18 21:51] LABS: BICARBONATE 32.2 MEQ/L (21.0-32.0); POTASSIUM 3.7 MEQ/L (3.5-5.1)
[2016-11-18 22:28] VITALS: BP 188/89
== END 2016-11-18 23:12 | disposition home or self-care (01) ==
LOC: NEPD 19:00
DX: J44.1 Chronic obstructive pulmonary disease with (acute) exacerbation (principal); I10 Essential (primary) hypertension; F17.210 Nicotine dependence, cigarettes, uncomplicated
CPT/HCPCS: 71010; 80048; 85025; 94640; 94664; 96374; 99285; J2930; J7626

== ENCOUNTER 2017-08-12 22:58 | Emergency (ER) | payer MEDICARE, MEDICAID ==
[~2017-08-12] VITALS: Ht 165.1 cm; Wt 104.6 kg
[~2017-08-12 22:58] MED LIST changes: +ASPI-183 PO; -ASPI325T PO; +EZET10 PO; +PRED50 PO; -ZETI10TA5 PO
[2017-08-12 23:19] VITALS: BP 135/68; PULSE 69; RESP 18; TEMP 98.1; O2SAT 98
[2017-08-13 01:31] VITALS: BP 126/74; PULSE 60; RESP 18; O2SAT 97
[2017-08-14] MEDS ORDERED: DOXY100C PO (02:21)
[2017-08-14] MEDS ORDERED: PERC5TAB12 PO (02:43)
[2017-08-14] MEDS ORDERED: MUPI2%T TOPICAL (02:43)
== END 2017-08-13 02:18 | disposition left against medical advice (07) ==
LOC: PHED 22:58
DX: Z53.21 Procedure and treatment not carried out due to patient leaving prior to being seen by health care provider (principal)
CPT/HCPCS: 99281

== ENCOUNTER 2017-08-14 01:55 | Emergency (ER) | payer MEDICARE, MEDICAID ==
[~2017-08-14] VITALS: Ht 165.1 cm; Wt 105.0 kg
[~2017-08-14 01:55] MED LIST changes: -ABIL5TAB6 PO; -PRED50 PO
[2017-08-14 02:01] VITALS: BP 143/68; PULSE 68; RESP 12; TEMP 97.6; O2SAT 100
[2017-08-14] MEDS ORDERED: LIDOCAINE HCL 1% PF 10 ML VIAL INFIL ONE (02:15)
[2017-08-14] MEDS ORDERED: SULFAMETHOXAZOLE-TRIMETHOPRIM DS 800-160 MG TAB PO ONE (02:15)
[2017-08-14] MEDS ORDERED: DOXY100C PO (02:21)
--- NOTE | 2017-08-14 02:21 | PD ---
HPI Chief Complaint: Skin Problem Time Seen by Provider: 02:14 Travel History International Travel<30 days: No Contact w/Intl Traveler<30days: No Traveled to known affect area: No History of Present Illness HPI 56-year-old female presents to the emergency department by private transportation for complaint of severe left toe pain with swelling and tenderness. Patient states she's had intermittent drainage from that site. Patient has been picking on her toe. Patient is diabetic. Patient is not followed up with her primary care provider and has not seen a flap maker. Patient rates pain as moderate to severe. No reported fever ascending erythema or voiced complaint of left groin tenderness or lymphadenopathy. Patient states pain is worsened by wearing shoes and walking on toe. Patient denies known injury. PFSH Past Medical History Narrative Medical Anxiety depression dyslipidemia hypertension diabetes CAD cardiac catheter with stents; tobacco use; nursing notes reviewed Hx Anticoagulant Therapy: Yes Arthritis: Yes (HIP/BILAT KNEES) Asthma: No Atrial Fibrillation: Yes Autoimmune Disease: No Blood Disorders: No Anxiety: Yes Depression: Yes Heart Rhythm Problems: Yes Cancer: Yes (LEFT KIDNEY ) Cardiac Catheterization: Yes (2017) Cardiovascular Problems: Yes (CAD x3 stents) High Cholesterol: Yes Chemotherapy: No Chest Pain: No Congestive Heart Failure: No COPD: Yes Cerebrovascular Accident: No Coronary Artery Disease: Yes Diabetes: Yes (been told) Patient Takes Glucophage: No Diminished Hearing: No Endocrine: No Gastrointestinal Disorders: No GERD: No Glaucoma: No Genitourinary: Yes Headaches: No Hepatitis: No Hiatal Hernia: No Heparin Induced Thrombocytopen: No Hypertension: Yes Immune Disorder: No Implanted Vascular Access Dvce: Yes Kidney Stones: No Medical other: No Musculoskeletal: Yes (ARTHRITIS, OSTEOPOROSIS) Neurologic: No Psychiatric: Yes (ANXIETY/ DEPRESSION) Reproductive: No Respiratory: Yes (COPD) Integumentary: Yes (BILAT LEGS/FEET SKIN GRAFT DONE R/T COLES) Immunizations Current: Yes Migraines: No Myocardial Infarction: No Radiation Therapy: No Renal Failure: No Seizures: No Sickle Cell Disease: No Sleep Apnea: Yes Thyroid Disease: No Ulcer: No Influenza Vaccination: Yes Menopausal: Yes : 2 Para: 1 Miscarriage: 1 Ovarian Cysts: Yes Past Surgical History Abdominal Surgery: Yes (JEJUNAL ABSCESS EXC.) AICD: No Appendectomy: No Arteriovenous Shunt: No Body Medical Devices: CARDIAC STENTS Cardiac Surgery: Yes ( STENT PLACED/CARDIAC CATH FEB (CHEST PAIN CTR) ) Cholecystectomy: No Coronary Artery Bypass Graft: No Coronary Stent: Yes (2003 ONE STENT PLACED) Ear Surgery: No Endocrine Surgery: No Eye Surgery: No Genitourinary Surgery: Yes (PARTIAL LEFT NEPHRECTOMY) Gynecologic Surgery: Yes (LUMPECTOMY LT. BREAST BENIGN) Insulin Pump: No Joint Replacement: Yes (KNEE) Neurologic Surgery: No Oral Surgery: No Pacemaker: No Thoracic Surgery: No Other Surgery: Yes (BILAT LEGS SKIN GRAFT BURN) Family History Family Myocardial Infarction: Yes (BROTHER, MOTHER, DAD) Social History Alcohol Use: Yes (occ) Tobacco Use: Yes (one pack per day) Substance Use: No Allergies-Medications (Allergen,Severity, Reaction): Coded Allergies: bacitracin (Verified Allergy, Severe, Rash, 08/14/17) morphine (Verified Allergy, Severe, Itching, 08/14/17) acetaminophen (Verified Allergy, Unknown, 08/14/17) propoxyphene (Verified Allergy, Unknown, 08/14/17) Reported Meds & Prescriptions Reported Meds & Active Scripts Active Doxycycline Hyclate 100 Mg Cap 100 Mg PO BID Potassium Chloride ER (Potassium Chloride) 20 Meq Tab 20 Meq PO DAILY Ranexa ER 12 HR (Ranolazine) 500 Mg Tab 500 Mg PO Q12HR Reported Allopurinol 100 Mg Tab 200 Mg PO DAILY Spiriva Handihaler (Tiotropium Inh) 18 Mcg Cap 18 Mcg INH DAILY 1 capsule = 18 mcg Wellbutrin SR 12 HR (Bupropion HCl) 150 Mg Tab 150 Mg PO Q12HR Lyrica (Pregabalin) 150 Mg Cap 150 Mg PO BID Isosorbide Mononitrate 20 Mg Tab 30 Mg PO DAILY Take 2 doses 7 hours apart. Nitrostat SL (Nitroglycerin) 0.4 Mg Subl 0.4 Mg SL DIRECTED PRN 1 tablet under the tongue as needed for chest pain. Repeat every 5 minutes for a total of 3 DOSES or call 911 if NO relief. Proair Hfa 8.5 GM Inh (Albuterol Sulfate) 90 Mcg/Act Aer 2 Puff INH Q6H PRN 108 mcg/actuation Zetia (Ezetimibe) 10 Mg Tab 10 Mg PO DAILY Symbicort Inh (Budesonide/Formoterol Fumarate) 80-4.5 Mcg/Act Aero 1 Puff INH Q12HR Atenolol 50 Mg Tab 50 Mg PO DAILY Atorvastatin (Atorvastatin Calcium) 40 Mg Tab 40 Mg PO DAILY Cymbalta DR (Duloxetine HCl) 30 Mg Capdr 30 Mg PO DAILY Lisinopril 10 Mg Tab 10 Mg PO DAILY Aspirin 325 Mg Tab 325 Mg PO DAILY Review of Systems Except as stated in HPI: all other systems reviewed are Neg Physical Exam Narrative GENERAL: Well-developed well-nourished female in no acute distress no respiratory distress SKIN: Warm and dry. MUSCULOSKELETAL: No cyanosis, or edema. Attention left foot left hallux induration tenderness fluctuance increased warmth distally toes neurovascular tendon intact intact range of motion at first MTP and IP. No eschar no crepitus. No deformity. Thickened and yellowed dry nail. Data Data Last Documented VS Vital Signs Date Time Temp Pulse Resp B/P (MAP) Pulse Ox O2 Delivery O2 Flow Rate FiO2 08/14/17 02:01 97.6 68 12 143/68 (93) 100 Orders Orders Lidocaine Pf 1% Inj (Xylocaine-Mpf 1% In (08/14/17 02:15) Sulfamet-Trimeth Ds 800-160 Mg (Bactrim (08/14/17 02:15) Wound Care (08/14/17 02:15) Doxycycline (Vibramycin) (08/14/17 02:30) MDM Medical Decision Making Medical Screen Exam Complete: Yes Emergency Medical Condition: Yes Medical Record Reviewed: Yes Differential Diagnosis Paronychia, abscess, cellulitis, neck, onychomycosis Narrative Course After informed verbal consent describing risk benefit and procedure; left great toe was sterilely prepped and draped and cleansed with Betadine 1% lidocaine plain (2 cc) was used for digital block and local anesthetic injection; 11 blade scalpel was used to make incision and site was copiously irrigated with normal saline after culture was obtained. Dry dressing applied. Diagnosis Primary Impression: Paronychia of great toe of left foot Additional Impression: Onychomycosis of left great toe Referrals: Blood Bank Laboratory Professional call for appointment Patient Instructions: General Instructions Departure Forms: Tests/Procedures, Work Release Special Instructions: no work x 1 day Additional Instructions: Keep one site clean and dry change dressing daily May apply hydroperoxide to area twice daily Complete course of antibiotic as prescribed Follow-up with flap maker No work times one day May take ibuprofen as/Advil/Motrin 600 mg as often as every 6-8 hours for pain associated with inflammation as tolerated Take pain medication as prescribed as needed be aware that this may interfere with judgment impair reaction time and increased risk for fall; U cannot take this medication and drive handle heavy equipment or drink alcoholic beverages Follow-up with your primary care provider [facility] Med/Other Pt SpecificInfo: Prescription(s) given Scripts Oxycodone-Acetaminophen (Percocet) 5-325 mg Tab 1 TAB PO Q6H Y for PAIN, #5 TAB 0 Refills Prov: Karen Egan MD 08/14/17 Mupirocin Topical (Bactroban Topical) 22 Gm Cream 1 APPLIC TOPICAL BID for Mgmt Bacterial Infection, #1 TUBE 0 Refills Prov: Karen Egan MD 08/14/17 Doxycycline Hyclate (Doxycycline Hyclate) 100 Mg Cap 100 MG PO BID for Infection, #14 CAP 0 Refills Prov: Karen Egan MD 08/14/17 Disposition: 01 DISCHARGE HOME Condition: Stable Karen Egan MD Aug 14, 2017 02:21
[2017-08-14] MEDS ORDERED: DOXYCYCLINE HYCLATE 100 MG CAP PO ONE (02:30)
[2017-08-14] MEDS ORDERED: PERC5TAB12 PO (02:43)
[2017-08-14] MEDS ORDERED: MUPI2%T TOPICAL (02:43)
== END 2017-08-14 03:09 | disposition home or self-care (01) ==
LOC: PHED 01:55
DX: L03.032 Cellulitis of left toe (principal); B35.1 Tinea unguium; E78.00 Pure hypercholesterolemia, unspecified; I10 Essential (primary) hypertension; I25.10 Atherosclerotic heart disease of native coronary artery without angina pectoris; J44.9 Chronic obstructive pulmonary disease, unspecified; F17.200 Nicotine dependence, unspecified, uncomplicated
CPT/HCPCS: 10060; 86403; 87070; 87186

== ENCOUNTER 2017-10-28 05:29 | Emergency (ER) | payer MEDICARE, MEDICAID ==
[~2017-10-28] VITALS: Ht 165.1 cm; Wt 105.0 kg
[~2017-10-28 05:29] MED LIST changes: +DOXY100C PO; +MUPI2%T TOPICAL; +PERC5TAB12 PO
[2017-10-28 05:32] VITALS: BP 169/75; PULSE 78; RESP 18; TEMP 98.8; O2SAT 100
[2017-10-28 05:51] VITALS: BP 159/79; PULSE 75; RESP 20; TEMP 98; O2SAT 100
[2017-10-28 05:57] VITALS: RESP 20
--- NOTE | 2017-10-28 06:04 | PD ---
HPI Chief Complaint: Abdominal Pain Time Seen by Provider: 05:41 Travel History International Travel<30 days: No Contact w/Intl Traveler<30days: No Traveled to known affect area: No History of Present Illness HPI The patient is a 56 year old female who presents to the [facility] emergency department with a history of abdominal pain that she reports began approximately 6 days ago. The patient reports that the pain is in the lower portion of the abdomen, worse on the left compared to the right. She reports that she felt like she may be constipated, therefore she took milk of magnesia. She reports that she had no effect with this and then took a stool softener without effect. She proceeded to drink a bottle of magnesium citrate in the next day moved her bowels in small amount. She again the next day drink magnesium citrate without effect. She reports that the last time she moved her bowels was on Saturday. She reports that she has had a colonoscopy in the past , a few years ago that was unremarkable. She denies any known prior history of diverticulitis. She does report having a history of jejunal perforation status post emergency surgery in 2013. She denies any prior history of bowel obstruction. She reports having a partial nephrectomy on the left related to kidney cancer. The patient reports that she began to have chest pain this evening. She reports that she does have a history of coronary artery disease with 3 prior stents being placed. She also has a history of atrial fibrillation and is anticoagulated on Effient. On review of systems otherwise, the patient denies having any known recent fevers, worsening cough or congestion , neck pain, diarrhea, urinary symptoms, or neurologic symptoms. The patient reports that she had nausea and vomiting 1 on Saturday night. She reports that a month ago she did have flu symptoms and has an mild residual cough since then. [facility] Past Medical History Narrative Medical The patient's past medical history is significant for tobacco use, cocaine use with last used on Saturday, arthritis, atrial fibrillation, anxiety and depression , history of left kidney cancer, hyperlipidemia, COPD, coronary artery disease, headaches, hypertension, osteoporosis, history of ovarian cyst, history of sleep apnea. Hx Anticoagulant Therapy: Yes Arthritis: Yes (HIP/BILAT KNEES) Asthma: No Atrial Fibrillation: Yes Autoimmune Disease: No Blood Disorders: No Anxiety: Yes Depression: Yes Heart Rhythm Problems: Yes Cancer: Yes (LEFT KIDNEY ) Cardiac Catheterization: Yes (2016) Cardiovascular Problems: Yes (CAD x3 stents) High Cholesterol: Yes Chemotherapy: No Chest Pain: No Congestive Heart Failure: No COPD: Yes Cerebrovascular Accident: No Coronary Artery Disease: Yes Diabetes: Yes (been told) Patient Takes Glucophage: No Diminished Hearing: No Endocrine: No Gastrointestinal Disorders: No GERD: No Glaucoma: No Genitourinary: Yes Headaches: No Hepatitis: No Hiatal Hernia: No Heparin Induced Thrombocytopen: No Hypertension: Yes Immune Disorder: No Implanted Vascular Access Dvce: Yes Kidney Stones: No Musculoskeletal: Yes (ARTHRITIS, OSTEOPOROSIS) Neurologic: No Psychiatric: Yes (ANXIETY/ DEPRESSION) Reproductive: No Respiratory: Yes (COPD) Integumentary: Yes (BILAT LEGS/FEET SKIN GRAFT DONE R/T COLES) Immunizations Current: Yes Migraines: No Myocardial Infarction: No Radiation Therapy: No Renal Failure: No Seizures: No Sickle Cell Disease: No Sleep Apnea: Yes Thyroid Disease: No Ulcer: No Tetanus Vaccination: Unknown Influenza Vaccination: Yes ?: Not LMP: menapause Menopausal: Yes : 2 Para: 1 Miscarriage: 1 Ovarian Cysts: Yes Past Surgical History Narrative Surgical The patient's past surgical history is significant for jejunal perforation, cardiac catheterization with stent placement 3, history of skin graft for coles , history of partial left nephrectomy, history of left breast lumpectomy that was benign, history of left knee replacement Abdominal Surgery: Yes (JEJUNAL ABSCESS EXC.) AICD: No Appendectomy: No Arteriovenous Shunt: No Body Medical Devices: CARDIAC STENTS Cardiac Surgery: Yes ( STENT PLACED/CARDIAC CATH AUG (CHEST PAIN CTR) ) Cholecystectomy: No Coronary Artery Bypass Graft: No Coronary Stent: Yes (2003 ONE STENT PLACED) Ear Surgery: No Endocrine Surgery: No Eye Surgery: No Genitourinary Surgery: Yes (PARTIAL LEFT NEPHRECTOMY) Gynecologic Surgery: Yes (LUMPECTOMY LT. BREAST BENIGN) Insulin Pump: No Joint Replacement: Yes (KNEE) Neurologic Surgery: No Oral Surgery: No Pacemaker: No Thoracic Surgery: No Other Surgery: Yes (BILAT LEGS SKIN GRAFT BURN) Family History Family Myocardial Infarction: Yes (BROTHER, MOTHER, DAD) Social History Alcohol Use: Yes (occ) Tobacco Use: Yes (one pack per day) Substance Use: Yes (Cocaine occasionally, last on Saturday) Allergies-Medications (Allergen,Severity, Reaction): Coded Allergies: bacitracin (Verified Allergy, Severe, Rash, 10/28/17) morphine (Verified Allergy, Severe, Itching, 10/28/17) propoxyphene (Verified Allergy, Unknown, 10/28/17) Reported Meds & Prescriptions Reported Meds & Active Scripts Active Ranexa ER 12 HR (Ranolazine) 500 Mg Tab 500 Mg PO Q12HR Reported Allopurinol 100 Mg Tab 200 Mg PO DAILY Lyrica (Pregabalin) 150 Mg Cap 150 Mg PO BID Isosorbide Mononitrate 20 Mg Tab 30 Mg PO DAILY Take 2 doses 7 hours apart. Nitrostat SL (Nitroglycerin) 0.4 Mg Subl 0.4 Mg SL DIRECTED PRN 1 tablet under the tongue as needed for chest pain. Repeat every 5 minutes for a total of 3 DOSES or call 911 if NO relief. Proair Hfa 8.5 GM Inh (Albuterol Sulfate) 90 Mcg/Act Aer 2 Puff INH Q6H PRN 108 mcg/actuation Zetia (Ezetimibe) 10 Mg Tab 10 Mg PO DAILY Atenolol 50 Mg Tab 50 Mg PO DAILY Atorvastatin (Atorvastatin Calcium) 40 Mg Tab 40 Mg PO DAILY Lisinopril 10 Mg Tab 10 Mg PO DAILY Review of Systems Except as stated in HPI: all other systems reviewed are Neg General / Constitutional: No: Fever Eyes: No: Visual changes HENT: No: Headaches Cardiovascular: Positive: Chest Pain or Discomfort, Dyspnea on exertion Respiratory: Positive: Cough, Shortness of Breath Gastrointestinal: Positive: Nausea, Vomiting, Abdominal Pain, Constipation, Changes in Bowel Habits, Indigestion, No: Diarrhea, Hematemesis, Hematochezia, Loss of Appetite Genitourinary: No: Dysuria Musculoskeletal: No: Pain Skin: No Rash Neurologic: No: Weakness, Focal Abnormalities, Change in Mentation, Slurred Speech, Sensory Disturbance Psychiatric: No: Depression Endocrine: No: Polydipsia Hematologic/Lymphatic: No: Easy Bruising Physical Exam Narrative General: The patient is a well-developed well-nourished female, uncomfortable appearing on arrival, however in no acute distress. Head and Neck exam: Head is normocephalic atraumatic. Eyes: EOMI, pupils are equal round and reactive to light. Nose: Midline septum with pink mucous membranes Mouth: Dentition unremarkable. Moist mucus membranes. Posterior oropharynx is not erythematous. No tonsillar hypertrophy. Uvula midline. Airway patent. Neck: No palpable lymphadenopathy. No nuchal rigidity. No thyromegaly. Cardiovascular: Regular rate and rhythm without murmurs, gallops, or rubs. No pulse deficit to the extremities on simultaneous auscultation and palpation of her radial artery. Lungs: Clear to auscultation bilaterally. No wheezes, rhonchi, or rales. Abdomen: Soft, with tenderness on palpation of bilateral lower quadrants of the abdomen in the suprapubic area, worse reportedly on palpation of the left lower quadrant. No other tenderness on palpation of the other quadrants of the abdomen. Tinkling bowel sounds are noted. No guarding, rebound, or rigidity. No point tenderness on palpation of her McBurney's point. Negative Long sign. Extremities: No clubbing, cyanosis, or edema. 2+ pulses in all 4 extremities. No calf tenderness. Back: No spinous process tenderness to palpation. No costovertebral angle tenderness to palpation. Neurologic Exam: Grossly nonfocal. Skin Exam: No rash noted. Intact skin that is warm and dry. Data Data Last Documented VS Vital Signs Date Time Temp Pulse Resp B/P (MAP) Pulse Ox O2 Delivery O2 Flow Rate FiO2 10/28/17 05:57 20 10/28/17 05:51 98.0 75 100 Room Air Orders Orders Electrocardiogram (10/28/17 05:53) Complete Blood Count With Diff (10/28/17 05:53) Comprehensive Metabolic Panel (10/28/17 05:53) Creatine Kinase (Cpk) (10/28/17 05:53) Ckmb (Isoenzyme) Profile (10/28/17 05:53) Troponin I (10/28/17 05:53) B-Type Natriuretic Peptide (10/28/17 05:53) Prothrombin Time / Inr (Pt) (10/28/17 05:53) Act Partial Throm Time (Ptt) (10/28/17 05:53) Lipase (10/28/17 05:53) Urinalysis - C+S If Indicated (10/28/17 05:53) Magnesium (Mg) (10/28/17 05:53) Chest, Single Ap (10/28/17 05:53) Ct Abd/Pel W Iv Contrast(Rout) (10/28/17 05:53) Iv Access Insert/Monitor (10/28/17 05:53) Ecg Monitoring (10/28/17 05:53) Oximetry (10/28/17 05:53) Hydromorphone Pf Inj (Dilaudid Pf Inj) (10/28/17 06:15) Ondansetron Inj (Zofran Inj) (10/28/17 06:15) Aspirin Chew (Aspirin Chew) (10/28/17 06:15) Nitroglycerin 2% Oint (Nitroglycerin 2% (10/28/17 06:15) Nitroglycerin Sl (Nitrostat Sl) (10/28/17 06:15) Labs Laboratory Tests Test 10/28/17 06:02 White Blood Count 9.0 TH/MM3 Red Blood Count 5.13 MIL/MM3 Hemoglobin 15.6 GM/DL Hematocrit 45.5 % Mean Corpuscular Volume 88.7 FL Mean Corpuscular Hemoglobin 30.5 PG Mean Corpuscular Hemoglobin Concent 34.3 % Red Cell Distribution Width 13.1 % Platelet Count 254 TH/MM3 Mean Platelet Volume 8.3 FL Neutrophils (%) (Auto) 59.0 % Lymphocytes (%) (Auto) 33.7 % Monocytes (%) (Auto) 5.9 % Eosinophils (%) (Auto) 1.0 % Basophils (%) (Auto) 0.4 % Neutrophils # (Auto) 5.3 TH/MM3 Lymphocytes # (Auto) 3.0 TH/MM3 Monocytes # (Auto) 0.5 TH/MM3 Eosinophils # (Auto) 0.1 TH/MM3 Basophils # (Auto) 0.0 TH/MM3 CBC Comment DIFF FINAL Differential Comment Prothrombin Time 10.0 SEC Prothromb Time International Ratio 1.0 RATIO Activated Partial Thromboplast Time 27.5 SEC Blood Urea Nitrogen 6 MG/DL Creatinine 1.03 MG/DL Random Glucose 199 MG/DL Total Protein 7.6 GM/DL Albumin 3.8 GM/DL Calcium Level 9.1 MG/DL Magnesium Level 2.3 MG/DL Alkaline Phosphatase 124 U/L Aspartate Amino Transf (AST/SGOT) 18 U/L Alanine Aminotransferase (ALT/SGPT) 22 U/L Total Bilirubin 0.3 MG/DL Sodium Level 140 MEQ/L Potassium Level 3.9 MEQ/L Chloride Level 102 MEQ/L Carbon Dioxide Level 30.0 MEQ/L Anion Gap 8 MEQ/L Estimat Glomerular Filtration Rate 55 ML/MIN Total Creatine Kinase 94 U/L Troponin I LESS THAN 0.02 NG/ML B-Type Natriuretic Peptide 52 PG/ML Lipase 177 U/L MDM Medical Decision Making Medical Screen Exam Complete: Yes Emergency Medical Condition: Yes Medical Record Reviewed: Yes Interpretation(s) Last Impressions Chest X-Ray 10/28/17 0553 Signed Impressions: Service Date/Time: Saturday, October 28, 2017 06:11 - CONCLUSION: No evidence of acute cardiopulmonary disease. Shiv Mobley MD Differential Diagnosis Peptic ulcer disease, versus pancreatitis, versus acute coronary syndrome, versus constipation, versus bowel obstruction Narrative Course During the course of the patient's emergency department visit, the patient's history, examination, and differential diagnosis were reviewed with the patient. The patient was placed on a secured entrance monitor with oximetry and frequent blood pressure monitoring. The patient had IV access obtained and blood work sent for analysis. The patient was initially provided aspirin 162 mg p.o. 1, nitroglycerin 1 inch the chest wall, nitroglycerin sublingual every 5 minutes 3 as needed chest pain. The patient was given hydromorphone 0.5 mg IV, Zofran 4 mg IV The patient's laboratory studies were reviewed and remarkable for a CBC that is unremarkable, CMP shows a BUN of 6, creatinine 1.03, glucose 199, alk phos 124, CPK 94, troponin I less than 0.02, BNP 52, lipase 177. PT PTT within normal limits Radiology studies were reviewed and remarkable for a chest x-ray that shows no evidence of acute cardiopulmonary disease. CT scan of the abdomen and pelvis is pending at the conclusion of my shift. The patient's case will be checked out to the oncoming emergency physician to disposition the patient based on the conclusion of the patient's workup. Diagnosis Primary Impression: Abdominal pain Qualified Codes: R10.30 - Lower abdominal pain, unspecified Additional Impression: Chest pain, rule out acute myocardial infarction Savita Simental MD Oct 28, 2017 06:04
[2017-10-28 06:11] LABS: AUTOMATED NEUTROPHIL # 5.3 TH/MM3 (1.8-7.7); BASOPHIL % 0.4 % (0.0-2.0); EOSINOPHIL # 0.1 TH/MM3 (0-0.4); HEMATOCRIT 45.5 % (35.0-46.0); HEMOGLOBIN 15.6 GM/DL (11.6-15.3); LYMPH % 33.7 % (9.0-44.0); MEAN CELL VOLUME 88.7 FL (80.0-100.0); MEAN CORPUSCULAR HEMOGLOBIN 30.5 PG (27.0-34.0); MEAN CORPUSCULAR HGB CONC 34.3 % (32.0-36.0); MEAN PLATELET VOLUME 8.3 FL (7.0-11.0); MONO % 5.9 % (0.0-8.0); MONOCYTE # 0.5 TH/MM3 (0-0.9); PLATELET COUNT 254 TH/MM3 (150-450); RED BLOOD COUNT 5.13 MIL/MM3 (4.00-5.30); RED CELL DISTRIBUTION WIDTH 13.1 % (11.6-17.2)
[2017-10-28] MEDS ORDERED: ONDANSETRON HCL 4 MG/2 ML VIAL IV ONE (06:15)
[2017-10-28] MEDS ORDERED: ASPIRIN 81 MG CHEW TAB CHEW ONE (06:15)
[2017-10-28] MEDS ORDERED: NITROGLYCERIN 0.4 MG SL 25 TABS/BTL SL PRN (06:15)
[2017-10-28] MEDS ORDERED: HYDROmorphone HCL PF 2 MG/ML VIAL IV PUSH ONE (06:15)
[2017-10-28] MEDS ORDERED: NITROGLYCERIN 2% OINT 1 GM PACKET TOPICAL ONE (06:15)
[2017-10-28 06:36] LABS: ALBUMIN 3.8 GM/DL (3.4-5.0); ALT (GPT) 22 U/L (10-53); AST (GOT) 18 U/L (15-37); BLOOD UREA NITROGEN 6 MG/DL (7-18); CALCIUM 9.1 MG/DL (8.5-10.1); CHLORIDE 102 MEQ/L (98-107); CREATININE 1.03 MG/DL (0.50-1.00); GLOMERULAR FILTRATION RATE 55 ML/MIN (>89); GLUCOSE,RANDOM 199 MG/DL (74-106); MAGNESIUM 2.3 MG/DL (1.5-2.5); SODIUM (NA) 140 MEQ/L (136-145)
[2017-10-28 06:40] LABS: ALKALINE PHOSPHATASE 124 U/L (45-117); TOTAL BILIRUBIN ADULT 0.3 MG/DL (0.2-1.0); TOTAL PROTEIN 7.6 GM/DL (6.4-8.2); TROPONIN I LESS THAN 0.02 NG/ML (0.02-0.05)
--- NOTE | 2017-10-28 06:40 | RADRPT ---
EXAM DATE/TIME: 10/28/2017 06:11 [facility] COMPARISON: No previous studies available for comparison. INDICATIONS : Chest and abdominal pains. MEDICAL HISTORY : Chronic obstructive pulmonary disease. Hypertension Coronary artery disease SURGICAL HISTORY : None. ENCOUNTER: Initial ACUITY: 1 day PAIN SCORE: 0/10 LOCATION: Left chest FINDINGS: A single view of the chest demonstrates the lungs to be symmetrically aerated without evidence of mas s, infiltrate or effusion. The cardiomediastinal contours are unremarkable. Osseous structures are intact. CONCLUSION: No evidence of acute cardiopulmonary disease. Shiv Mobley MD on October 28, 2017 at 6:39 Board Certified Radiologist. This report was verified electronically.
[2017-10-28 07:06] VITALS: RESP 18
[2017-10-28] MEDS ORDERED: IOHEXOL 350 MG/ML 10 ML VIAL (for RAD DIAG) IVCONTRAST ONE (07:18)
--- NOTE | 2017-10-28 07:35 | RADRPT ---
EXAM DATE/TIME: 10/28/2017 07:11 [facility] COMPARISON: No previous studies available for comparison. INDICATIONS : Lower abdominal pain and constipation. IV CONTRAST: 50 cc Omnipaque 350 (iohexol) IV ORAL CONTRAST: No oral contrast ingested. RADIATION DOSE: 16.69 CTDIvol (mGy) MEDICAL HISTORY : Cardiovascular disease. Hypertension. Chronic obstructive pulmonary disease.Renal cancer. SURGICAL HISTORY : Left nephrectomy. Colon surgery. ENCOUNTER: Initial ACUITY: 1 day PAIN SCALE: 5/10 LOCATION: abdomen TECHNIQUE: Volumetric scanning of the abdomen and pelvis was performed. Using automated exposure control and ad justment of the mA and/or kV according to patient size, radiation dose was kept as low as reasonably achievable to obtain optimal diagnostic quality images. DICOM format image data is available electro nically for review and comparison. FINDINGS: LOWER LUNGS: The visualized lower lungs are clear. LIVER: Homogeneous density without lesion. There is no dilation of the biliary tree. No calcified gallston es. SPLEEN: Normal size without lesion. PANCREAS: Within normal limits. KIDNEYS: The left kidney demonstrates an abnormal orientation with cortical thinning identified along the infe rior aspect of the kidney. The kidneys are otherwise normal in size and enhancement. Small non-obstru cting right-sided renal stones. ADRENAL GLANDS: Within normal limits. VASCULAR: Extensive atherosclerosis. No evidence for aneurysm. BOWEL/MESENTERY: The stomach, small bowel, and colon demonstrate no acute abnormality. There is no free intraperitone al air or fluid. ABDOMINAL WALL: Within normal limits. RETROPERITONEUM: There is no lymphadenopathy. BLADDER: No wall thickening or mass. REPRODUCTIVE: There is an abnormal cystic right adnexal mass which demonstrates areas of thickened enhancing septat ions. The mass measures 10.8 x 2.2 9.2 cm. The left ovary is atrophic. The uterus is unremarkable. INGUINAL: There is no lymphadenopathy or hernia. MUSCULOSKELETAL: Within normal limits for patient age. CONCLUSION: Abnormal enlarged right ovarian cystic mass which demonstrates thickened enhancing septations highly concerning for cystadenocarcinoma. Surgical removal is recommended. The left ovary is unremarkable. Karina Butler MD on October 28, 2017 at 7:28 Board Certified Radiologist. This report was verified electronically.
[2017-10-28 09:20] LABS: BILIRUBIN, URINE NEG (NEG); BLOOD, URINE NEG (NEG); GLUCOSE,URINE NEG (NEG); KETONE, URINE NEG (NEG); NITRITE,URINE NEG (NEG); PH, URINE 6.5 (5.0-8.5); URINE COLOR YELLOW (YELLW/STRAW); URINE LEUKOCYTE ESTERASE NEG (NEG)
--- NOTE | 2017-10-28 09:53 | EKG ---
Date Performed: 10/28/2017 Time Performed: 05:57:02 PTAGE: 56 years EKG: Sinus rhythm WITH SHORT MO INTERVAL INCOMPLETE RIGHT BUNDLE BRANCH BLOCK ABNORMAL ECG PREVIOUS TRACING 10/30/16 Since the previous tracing, no significant change noted. DOCTOR: Denton Bucio Interpretating Date/Time 10/28/2017 09:51:29
--- NOTE | 2017-10-28 10:44 | PD ---
Data Data Last Documented VS Vital Signs Date Time Temp Pulse Resp B/P (MAP) Pulse Ox O2 Delivery O2 Flow Rate FiO2 10/28/17 07:06 18 10/28/17 05:57 10/28/17 05:51 98.0 75 100 Room Air Orders Orders Electrocardiogram (10/28/17 05:53) Complete Blood Count With Diff (10/28/17 05:53) Comprehensive Metabolic Panel (10/28/17 05:53) Creatine Kinase (Cpk) (10/28/17 05:53) Ckmb (Isoenzyme) Profile (10/28/17 05:53) Troponin I (10/28/17 05:53) B-Type Natriuretic Peptide (10/28/17 05:53) Prothrombin Time / Inr (Pt) (10/28/17 05:53) Act Partial Throm Time (Ptt) (10/28/17 05:53) Lipase (10/28/17 05:53) Urinalysis - C+S If Indicated (10/28/17 05:53) Magnesium (Mg) (10/28/17 05:53) Chest, Single Ap (10/28/17 05:53) Ct Abd/Pel W Iv Contrast(Rout) (10/28/17 05:53) Iv Access Insert/Monitor (10/28/17 05:53) Ecg Monitoring (10/28/17 05:53) Oximetry (10/28/17 05:53) Hydromorphone Pf Inj (Dilaudid Pf Inj) (10/28/17 06:15) Ondansetron Inj (Zofran Inj) (10/28/17 06:15) Aspirin Chew (Aspirin Chew) (10/28/17 06:15) Nitroglycerin 2% Oint (Nitroglycerin 2% (10/28/17 06:15) Nitroglycerin Sl (Nitrostat Sl) (10/28/17 06:15) Iohexol 350 Inj (Omnipaque 350 Inj) (10/28/17 07:18) Radiology Film Requests (10/28/17 ) Labs Laboratory Tests Test 10/28/17 06:02 10/28/17 09:12 White Blood Count 9.0 TH/MM3 Red Blood Count 5.13 MIL/MM3 Hemoglobin 15.6 GM/DL Hematocrit 45.5 % Mean Corpuscular Volume 88.7 FL Mean Corpuscular Hemoglobin 30.5 PG Mean Corpuscular Hemoglobin Concent 34.3 % Red Cell Distribution Width 13.1 % Platelet Count 254 TH/MM3 Mean Platelet Volume 8.3 FL Neutrophils (%) (Auto) 59.0 % Lymphocytes (%) (Auto) 33.7 % Monocytes (%) (Auto) 5.9 % Eosinophils (%) (Auto) 1.0 % Basophils (%) (Auto) 0.4 % Neutrophils # (Auto) 5.3 TH/MM3 Lymphocytes # (Auto) 3.0 TH/MM3 Monocytes # (Auto) 0.5 TH/MM3 Eosinophils # (Auto) 0.1 TH/MM3 Basophils # (Auto) 0.0 TH/MM3 CBC Comment DIFF FINAL Differential Comment Prothrombin Time 10.0 SEC Prothromb Time International Ratio 1.0 RATIO Activated Partial Thromboplast Time 27.5 SEC Blood Urea Nitrogen 6 MG/DL Creatinine 1.03 MG/DL Random Glucose 199 MG/DL Total Protein 7.6 GM/DL Albumin 3.8 GM/DL Calcium Level 9.1 MG/DL Magnesium Level 2.3 MG/DL Alkaline Phosphatase 124 U/L Aspartate Amino Transf (AST/SGOT) 18 U/L Alanine Aminotransferase (ALT/SGPT) 22 U/L Total Bilirubin 0.3 MG/DL Sodium Level 140 MEQ/L Potassium Level 3.9 MEQ/L Chloride Level 102 MEQ/L Carbon Dioxide Level 30.0 MEQ/L Anion Gap 8 MEQ/L Estimat Glomerular Filtration Rate 55 ML/MIN Total Creatine Kinase 94 U/L Troponin I LESS THAN 0.02 NG/ML B-Type Natriuretic Peptide 52 PG/ML Lipase 177 U/L Urine Color YELLOW Urine Turbidity CLEAR Urine pH 6.5 Urine Specific [place] GREATER THAN 1.050 Urine Protein TRACE mg/dL Urine Glucose (UA) NEG mg/dL Urine Ketones NEG mg/dL Urine Occult Blood NEG Urine Nitrite NEG Urine Bilirubin NEG Urine Urobilinogen LESS THAN 2.0 MG/DL Urine Leukocyte Esterase NEG Urine RBC LESS THAN 1 /hpf Urine WBC LESS THAN 1 /hpf Microscopic Urinalysis Comment CULT NOT INDICATED MDM Supervised Visit with CHRISTOFER: No Narrative Course This case is checked out to me by Dr. Simental at 7 AM. I have reevaluated her. She is clinically stable with benign abdomen and ambulatory. I reviewed the entirety of her workup with her. CBC and metabolic studies and urine are all normal CT scan reveals a suspicious right ovarian cystic mass. Radiologist notes that it is suspicion for cystadenocarcinoma. I discussed this with her primary physician Dr. Fiona Myers. She is going to arrange for a gynecology evaluation to consider surgical removal. I am having the CAT scan placed onto a disc for her to take home and to the gynecology follow-up. Diagnosis Primary Impression: Abdominal pain Qualified Codes: R10.30 - Lower abdominal pain, unspecified Additional Impression: Ovarian mass, right Additional Instruction: Follow-up with gynecology to discuss your right ovarian mass Med/Other Pt SpecificInfo: Other Disposition: DISCHARGE HOME Condition: Stable Luke Stratton MD Oct 28, 2017 10:44
== END 2017-10-28 11:12 | disposition home or self-care (01) ==
LOC: NEPC 05:29
DX: R10.30 Lower abdominal pain, unspecified (principal); N83.201 Unspecified ovarian cyst, right side; R07.9 Chest pain, unspecified; I45.10 Unspecified right bundle-branch block; I10 Essential (primary) hypertension; I25.10 Atherosclerotic heart disease of native coronary artery without angina pectoris; I48.91 Unspecified atrial fibrillation; E78.00 Pure hypercholesterolemia, unspecified; E11.9 Type 2 diabetes mellitus without complications; J44.9 Chronic obstructive pulmonary disease, unspecified; M19.90 Unspecified osteoarthritis, unspecified site; F32.9 Major depressive disorder, single episode, unspecified; M81.0 Age-related osteoporosis without current pathological fracture; F17.210 Nicotine dependence, cigarettes, uncomplicated; Z95.5 Presence of coronary angioplasty implant and graft; Z85.528 Personal history of other malignant neoplasm of kidney; Z88.5 Allergy status to narcotic agent; Z88.8 Allergy status to other drugs, medicaments and biological substances; Z79.899 Other long term (current) drug therapy
CPT/HCPCS: 71045; 74177; 80053; 81001; 82550; 83690; 83735; 83880; 84484; 85025; 85610; 85730; 93005; 96374; 96375; 99285; J1170; J2405; Q9967

== ENCOUNTER → 2017-11-08 | Outpatient (CLI) | payer MEDICARE, OTHER ==
[~2017-11-08] MED LIST changes: -ASPI-183 PO; -BUPR150CR PO; -CYMB30CA PO; -DOXY100C PO; +MULT-65 PO; -MUPI2%T TOPICAL; -PERC5TAB12 PO; -POTA-163 PO; +PRAS5TAB PO; -SPIRCAP INH; -SYMB80AE INH
[2017-11-08 14:29] LABS: AUTOMATED NEUTROPHIL # 3.6 TH/MM3 (1.8-7.7); BASOPHIL % 0.2 % (0.0-2.0); EOSINOPHIL # 0.2 TH/MM3 (0-0.4); EOSINOPHIL % 2.4 % (0.0-4.0); HEMATOCRIT 41.6 % (35.0-46.0); HEMOGLOBIN 14.1 GM/DL (11.6-15.3); LYMPH % 35.1 % (9.0-44.0); LYMPHOCYTE # 2.3 TH/MM3 (1.0-4.8); MEAN CELL VOLUME 89.4 FL (80.0-100.0); MEAN CORPUSCULAR HEMOGLOBIN 30.4 PG (27.0-34.0); MEAN PLATELET VOLUME 8.7 FL (7.0-11.0); MONO % 7.4 % (0.0-8.0); MONOCYTE # 0.5 TH/MM3 (0-0.9); NEUT % 54.9 % (16.0-70.0); PLATELET COUNT 220 TH/MM3 (150-450); RED BLOOD COUNT 4.65 MIL/MM3 (4.00-5.30); WHITE BLOOD COUNT 6.6 TH/MM3 (4.0-11.0)
[2017-11-08 14:38] LABS: PROTHROMBIN TIME - PATIENT 9.8 SEC (9.8-11.6)
[2017-11-08 14:54] LABS: ALBUMIN 3.4 GM/DL (3.4-5.0); ALT (GPT) 16 U/L (10-53); AST (GOT) 13 U/L (15-37); BICARBONATE 31.2 MEQ/L (21.0-32.0); BLOOD UREA NITROGEN 8 MG/DL (7-18); CALCIUM 8.6 MG/DL (8.5-10.1); CHLORIDE 110 MEQ/L (98-107); CREATININE 0.93 MG/DL (0.50-1.00); GLOMERULAR FILTRATION RATE 62 ML/MIN (>89); GLUCOSE,FASTING 130 MG/DL (74-99); SODIUM (NA) 146 MEQ/L (136-145)
[2017-11-08 14:57] LABS: ALKALINE PHOSPHATASE 104 U/L (45-117); TOTAL BILIRUBIN ADULT 0.3 MG/DL (0.2-1.0); TOTAL PROTEIN 6.5 GM/DL (6.4-8.2)
== END ==
LOC: CPRE 13:01
PROVIDERS: ATTEND Obstetrics & Gynecology
DX: Z01.812 Encounter for preprocedural laboratory examination (principal); N83.201 Unspecified ovarian cyst, right side; Z79.01 Long term (current) use of anticoagulants
CPT/HCPCS: 36415; 80053; 84703; 85025; 85610

== ENCOUNTER → 2017-11-14 | Day surgery (SDC) | payer MEDICARE, OTHER ==
[~2017-11-14] VITALS: Ht 165.1 cm; Wt 103.2 kg
[~2017-11-14] MED LIST changes: +*RESP: ALBUTEROL 2.5 MG/3 ML NEB (PRN) PERIprocedural Use ONLY NEB ONE; +ACETAMINOPHEN 1000 MG/100 ML 100 ML IV SCH; +BUPIVACAINE/EPINEPHRINE 0.5% PF 30 ML VIAL ONE; +CHLORHEXIDINE GLUCONATE 2 % 1 PACK (2 CLOTHS) TOPICAL PRN; +DEXAMETHASONE SOD PHOS 4 MG/ML VIAL IV ONE; +DO NOT ADM ANY ANTICOAGULANT DRUGS PRN; +GABAPENTIN 300 MG CAP PO SCH; +GLYCOPYRROLATE 1 MG/5 ML SYRINGE IV PUSH ONE; +HYDROmorphone HCL PF 0.5 MG/0.5 ML SYRINGE IV PRN; +KETOROLAC TROMETHAMINE 30 MG/ML (IVP) VIAL IV PUSH SCH; +LACTATED RINGER'S 1000 ML INJ 1,000 ML IV ONE; +LACTATED RINGER'S 1000 ML IV PRN; +LIDOCAINE HCL 1% PF 5 ML SYRINGE OTHER ONE; +METOPROLOL TARTRATE 25 MG TAB PO PRN; +ONDANSETRON HCL 4 MG/2 ML VIAL IV ONE; +ONDANSETRON HCL 4 MG/2 ML VIAL IVP PRN; +PHENYLEPH/NS 1000 MCG/10 ML SYR IV ONE; +POVIDONE IODINE 5% (ANTISEPSIS KIT) 4 APPLICATIONS EACH NARE PRN; +PROPOFOL 200 MG/20 ML AMP IV ONE; -RANO500 PO; +RESP: ALBUTEROL 2.5 MG/3 ML NEB (PRN) ONE; +ROCURONIUM INJ 50 MG/5 ML SYRINGE IV PUSH ONE; +SODIUM CHLORID 0.9% 500 ML IV PRN; +SODIUM CHLORIDE 0.9% FLUSH 10 ML FLUSH IV FLUSH PRN; +SODIUM CHLORIDE 0.9% FLUSH 10 ML FLUSH IV FLUSH SCH; +VASOPRESSIN 20 UNITS/ML VIAL ONE; +diphenhydrAMINE HCL 25 MG CAP PO PRN; +oxyCODONE/ACETAMINOPHEN 5 MG/325 MG TAB PO PRN
--- NOTE | 2017-11-14 13:53 | HHI.PR ---
Immediate Post Op Note Procedure Date: November 14, 2017 Pre Op Diagnosis: 1. Suspected right adnexal mass Post Op Diagnosis: 1. Confirmed a right ovarian mass Surgeon: Humphrey Leslie Dish Machine Operator(s): Dr. Ai uBtt was present and scrubbed throughout the case Procedure: Laparoscopic lysis of adhesions, and bilateral salpingo-oophorectomy Findings: Abdomen free of adhesions other than filmy adhesions of the omentum and small bowel to the right adnexa, enlarged smooth benign-appearing right ovarian mass measuring approximately 11 cm. Normal left ovary and fallopian tube and uterus Additional Information: Full dictated report pending, dictation #[id number] Complications: None Specimen(s) removed: Bilateral ovaries and fallopian tubes with en bloc right ovarian cyst Estimated blood loss: 100 cc Anesthesia: General Drains: None Fluids: 1800 cc lactated Ringer's IVF Patient to: PACU Patient Condition: Good Humphrey Leslie MD November 14, 2017 13:53
--- NOTE | 2017-11-14 14:21 | MP ---
cc: Humphrey Leslie MD DATE OF OPERATION: 11/14/2017 DATE OF PROCEDURE: 11/14/2017 PREOPERATIVE DIAGNOSIS: Suspected right adnexal mass. POSTOPERATIVE DIAGNOSIS: 1. Enlarged right ovarian cyst. PROCEDURE PERFORMED: Diagnostic laparoscopy, lysis of adhesions and bilateral salpingo-oophorectomy. SURGEON: Humphrey Leslie MD BATCH MIXING TRUCK DRIVER SURGEON: Dr. Aracelis Butt was present and scrubbed throughout the case. FINDINGS: 1. Normal external female genitalia, vagina and cervix. Upper abdomen with no adhesions. Lower abdomen with filmy adhesions of the omentum and small bowel to the right adnexa and left adnexa. Otherwise normal appearing left ovary, fallopian tube, and uterus. Posterior cul-de-sac not visualized due to burden of bowel and omentum 2. Enlarged smooth-appearing right ovary, around 11cm, pelvic peritoneum free of any evidence of metastatic or nodular disease. 3. Normal-appearing liver. ESTIMATED BLOOD LOSS: 100 mL. URINE OUTPUT: 125 mL clear via Patel. IV FLUIDS: 1800 mL lactated Ringer's. SPECIMENS REMOVED: Bilateral fallopian tubes and ovaries with right adnexal mass en bloc. The right ovary sent separately to pathology routine. ANTIBIOTICS: None required. ANESTHESIA: General endotracheal. DVT PROPHYLAXIS: Sequential compression devices throughout the case. TIMEOUT: Done and correct. COUNTS: Correct x 2 at the end of the case. COMPLICATIONS: None. DISPOSITION: Stable to PACU, then home. INDICATION FOR PROCEDURE: This patient is a 56-year-old female who was seen an ER followup in an outpatient setting for abdominal pain and a finding of a 10 cm unilocular right adnexal mass. Her CA-125 resulted at 13. She was counseled for laparoscopy and possible laparotomy with bilateral salpingo-oophorectomy given her age. Please see H and P for further details and consent. DESCRIPTION OF PROCEDURE: The patient was taken to the operating room and placed in lithotomy position in Yellofin stirrups with the arms tucked. The abdomen, perineum and vagina were prepped and draped in a sterile fashion and a Patel was inserted. A bivalve speculum was inserted and a single-tooth tenaculum applied to the anterior lip of the cervix and acorn uterine manipulator was placed. Attention was turned to the abdomen. A left upper quadrant 5 mm incision at Colon's point was made and with optical view technique the abdomen was entered under direct visualization and insufflated with CO2 gas. There were no adhesions in the upper abdomen or underlying the umbilicus. A 1.5 to 2 cm incision was made by bissecting the umbilicus and sharply dissected down and entered the peritoneal cavity, the facia was extended to 3cm, the small green GelPOINT device was used. The small Glen retractor was inserted, the GelPOINT applied and a 5 mm scope inserted. The patient was placed in Trendelenburg and reinsufflated with CO2 gas. Two left lower quadrant 5mm ports were inserted under direct intra-abdominal visualization, a total of 18 mL of 1% lidocaine with epinephrine was used for the port sites and the umbilical incision. The pelvis was surveyed, see above. Using the Enseal bipolar device, the IP ligament was desiccated and transected on the right and dissected through the mesosalpinx to the uterine ovarian ligament and the mass right ovarian mass was freed. The same was done for the left ovary and tube. The specimens were placed in a containment bag, elevated to the abdomen and the cyst was ruptured outside the abdomen while contained in the bag drained and removed intact. The bag was without any puncture sites. Abdomen was reinsufflated. Survey was performed. All surgical sites were relatively hemostatic. There was some oozing at the left peritoneal sidewall on the right and Surgicel powder was applied to the raw peritoneal surfaces. The ports were removed under intraabdominal visualization. The abdomen was desufflated at the time of removal of the gelpoint and Glen retractor. The fascia at the umbilical site was closed with running 0 Vicryl. The subcutaneous fat was closed at the umbilicus with running 0 Vicryl and all skin sites were closed with a running 3-0 Monocryl. Skin glue was applied overlying and a Tegaderm applied to the umbilical site. The Patel and acorn manipulator were removed at the end of the case. The patient was awoken from anesthesia in stable condition and transferred to PACU. MD KULDEEP Kay/MELCHOR , 01:42 PM , 02:19 PM JOSE
[2017-11-14 16:15] VITALS: BP 143/70; PULSE 70; RESP 18; TEMP 97.3; O2SAT 96
== END | disposition home or self-care (01) ==
LOC: HSDC 08:35
PROVIDERS: ATTEND Obstetrics & Gynecology
DX: D27.0 Benign neoplasm of right ovary (principal); N83.8 Other noninflammatory disorders of ovary, fallopian tube and broad ligament; I10 Essential (primary) hypertension; I48.91 Unspecified atrial fibrillation; Z79.01 Long term (current) use of anticoagulants
CPT/HCPCS: 00840; 58661; 86850; 86900; 86901; 88307; 94664; J0131; J1885; J3010; J7120; J7613; 88305; J1100; J2370; J2405

== ENCOUNTER 2017-12-31 20:11 | Emergency (ER) | payer MEDICARE, MEDICAID ==
[~2017-12-31] VITALS: Ht 165.1 cm; Wt 100.5 kg
[~2017-12-31 20:11] MED LIST changes: -*RESP: ALBUTEROL 2.5 MG/3 ML NEB (PRN) PERIprocedural Use ONLY NEB ONE; -ACETAMINOPHEN 1000 MG/100 ML 100 ML IV SCH; -BUPIVACAINE/EPINEPHRINE 0.5% PF 30 ML VIAL ONE; -CHLORHEXIDINE GLUCONATE 2 % 1 PACK (2 CLOTHS) TOPICAL PRN; -DEXAMETHASONE SOD PHOS 4 MG/ML VIAL IV ONE; -DO NOT ADM ANY ANTICOAGULANT DRUGS PRN; -GABAPENTIN 300 MG CAP PO SCH; -GLYCOPYRROLATE 1 MG/5 ML SYRINGE IV PUSH ONE; -HYDROmorphone HCL PF 0.5 MG/0.5 ML SYRINGE IV PRN; -KETOROLAC TROMETHAMINE 30 MG/ML (IVP) VIAL IV PUSH SCH; -LACTATED RINGER'S 1000 ML INJ 1,000 ML IV ONE; -LACTATED RINGER'S 1000 ML IV PRN; -LIDOCAINE HCL 1% PF 5 ML SYRINGE OTHER ONE; -METOPROLOL TARTRATE 25 MG TAB PO PRN; -ONDANSETRON HCL 4 MG/2 ML VIAL IV ONE; -ONDANSETRON HCL 4 MG/2 ML VIAL IVP PRN; -PHENYLEPH/NS 1000 MCG/10 ML SYR IV ONE; -POVIDONE IODINE 5% (ANTISEPSIS KIT) 4 APPLICATIONS EACH NARE PRN; -PROPOFOL 200 MG/20 ML AMP IV ONE; -RESP: ALBUTEROL 2.5 MG/3 ML NEB (PRN) ONE; -ROCURONIUM INJ 50 MG/5 ML SYRINGE IV PUSH ONE; -SODIUM CHLORID 0.9% 500 ML IV PRN; -SODIUM CHLORIDE 0.9% FLUSH 10 ML FLUSH IV FLUSH PRN; -SODIUM CHLORIDE 0.9% FLUSH 10 ML FLUSH IV FLUSH SCH; -VASOPRESSIN 20 UNITS/ML VIAL ONE; -diphenhydrAMINE HCL 25 MG CAP PO PRN; -oxyCODONE/ACETAMINOPHEN 5 MG/325 MG TAB PO PRN
[2017-12-31 20:15] VITALS: BP 155/85; PULSE 89; RESP 18; TEMP 97.8; O2SAT 98
[2017-12-31] MEDS ORDERED: KETOROLAC TROMETHAMINE 60 MG/2 ML (IM) VIAL IM ONE (20:30)
--- NOTE | 2017-12-31 20:30 | PD ---
HPI Chief Complaint: Musculoskeletal Complaint Time Seen by Provider: 20:19 Travel History International Travel<30 days: No Contact w/Intl Traveler<30days: No Traveled to known affect area: No History of Present Illness HPI 57-year-old female presents to the emergency department for evaluation of right knee pain. Patient states that her right knee has been hurting her for approximately week. However, today at work, she states that it popped out twice. She had no traumatic injury before this occurred. She states she has had this happen before in the past, but it has been quite a while. She recently had a knee replacement surgery by Dr. Garay on the left knee for the same issue. Patient states the pain is 10/10 to the right knee. No radiation. Patient denies any other symptoms or complaints at this time. Movement, ambulation exacerbate pain. Mild severity. PFSH Past Medical History Hx Anticoagulant Therapy: Yes Arthritis: Yes (HIP/BILAT KNEES) Asthma: No Atrial Fibrillation: Yes Autoimmune Disease: No Blood Disorders: No Anxiety: Yes Depression: Yes Heart Rhythm Problems: Yes Cancer: Yes (LEFT KIDNEY ) Cardiac Catheterization: Yes (2017) Cardiovascular Problems: Yes (CAD x3 stents) High Cholesterol: Yes Chemotherapy: No Chest Pain: No Congestive Heart Failure: No COPD: Yes Cerebrovascular Accident: No Coronary Artery Disease: Yes Diabetes: Yes (PRE-DIABETIC) Diminished Hearing: No Endocrine: Yes Gastrointestinal Disorders: No GERD: No Glaucoma: No Genitourinary: Yes Headaches: No Hepatitis: No Hiatal Hernia: No Heparin Induced Thrombocytopen: No Hypertension: Yes Immune Disorder: No Implanted Vascular Access Dvce: Yes Kidney Stones: No Musculoskeletal: Yes (ARTHRITIS, OSTEOPOROSIS) Neurologic: No Psychiatric: Yes (ANXIETY/ DEPRESSION) Reproductive: No Respiratory: Yes (COPD) Integumentary: Yes (BILAT LEGS/FEET SKIN GRAFT DONE R/T COLES) Immunizations Current: Yes Migraines: No Myocardial Infarction: No Radiation Therapy: No Renal Failure: No Seizures: No Sickle Cell Disease: No Sleep Apnea: Yes Thyroid Disease: No Ulcer: No ?: Not Menopausal: Yes : 2 Para: 1 Miscarriage: 1 Ovarian Cysts: Yes Past Surgical History Abdominal Surgery: Yes (JEJUNAL ABSCESS EXC.) AICD: No Appendectomy: No Arteriovenous Shunt: No Body Medical Devices: CARDIAC STENTS Cardiac Surgery: Yes (CARDIAC CATH, STENTS X3) Cholecystectomy: No Coronary Artery Bypass Graft: No Coronary Stent: Yes (2003 ONE STENT PLACED) Ear Surgery: No Endocrine Surgery: No Eye Surgery: No Genitourinary Surgery: Yes (PARTIAL LEFT NEPHRECTOMY) Gynecologic Surgery: Yes (LUMPECTOMY LT. BREAST BENIGN) Insulin Pump: No Joint Replacement: Yes (LEFT KNEE) Neurologic Surgery: No Oral Surgery: No Pacemaker: No Thoracic Surgery: No Other Surgery: Yes (BILAT LEGS SKIN GRAFT BURN) Social History Alcohol Use: Yes (occ) Tobacco Use: Yes (one pack per day) Substance Use: No Allergies-Medications (Allergen,Severity, Reaction): Coded Allergies: bacitracin (Verified Allergy, Severe, Rash, 12/31/17) morphine (Verified Allergy, Severe, Itching, 12/31/17) propoxyphene (Verified Allergy, Unknown, 12/31/17) Reported Meds & Prescriptions Reported Meds & Active Scripts Active Reported Plavix (Clopidogrel Bisulfate) 75 Mg Tab 75 Mg PO DAILY Multi-Vitamin Daily (Multiple Vitamin) 1 Tab Tab 1 Tab PO DAILY Allopurinol 100 Mg Tab 200 Mg PO DAILY Lyrica (Pregabalin) 150 Mg Cap 150 Mg PO BID Isosorbide Mononitrate 20 Mg Tab 30 Mg PO DAILY Take 2 doses 7 hours apart. Nitrostat SL (Nitroglycerin) 0.4 Mg Subl 0.4 Mg SL DIRECTED PRN 1 tablet under the tongue as needed for chest pain. Repeat every 5 minutes for a total of 3 DOSES or call 911 if NO relief. Proair Hfa 8.5 GM Inh (Albuterol Sulfate) 90 Mcg/Act Aer 2 Puff INH Q6H PRN 108 mcg/actuation Zetia (Ezetimibe) 10 Mg Tab 10 Mg PO DAILY Atenolol 50 Mg Tab 50 Mg PO DAILY Atorvastatin (Atorvastatin Calcium) 40 Mg Tab 40 Mg PO DAILY Lisinopril 10 Mg Tab 10 Mg PO DAILY Review of Systems Except as stated in HPI: all other systems reviewed are Neg Physical Exam Narrative GENERAL: Well-nourished, well-developed female patient, afebrile. SKIN: Focused skin assessment warm/dry. No erythema or warmth over right knee. HEAD: Normocephalic. Atraumatic. EYES: No scleral icterus. No injection or drainage. NECK: Supple, trachea midline. No JVD or lymphadenopathy. CARDIOVASCULAR: Regular rate and rhythm without murmurs, gallops, or rubs. Right pedal pulse is 2+. RESPIRATORY: Breath sounds equal bilaterally. No accessory muscle use. Lung sounds clear to auscultation. GASTROINTESTINAL: Abdomen soft, non-tender, nondistended. MUSCULOSKELETAL: No cyanosis, or edema. No reproducible pain over the right anterior knee. Pain is easily reproduced with flexion of the right knee. She has full sensation in the distal right lower extremity. BACK: Nontender without obvious deformity. No CVA tenderness. Data Data Last Documented VS Vital Signs Date Time Temp Pulse Resp B/P (MAP) Pulse Ox O2 Delivery O2 Flow Rate FiO2 12/31/17 20:27 20 12/31/17 20:15 97.8 89 155/85 (108) 98 Orders Orders Knee, Complete (4vws) (12/31/17 ) Ice/Cold Pack (12/31/17 20:25) Ketorolac Inj (Toradol Inj) (12/31/17 20:30) MDM Medical Decision Making Medical Screen Exam Complete: Yes Emergency Medical Condition: Yes Medical Record Reviewed: Yes Differential Diagnosis Dislocation versus ligamentous injury versus contusion versus tendon injury versus fracture Narrative Course 57-year-old female presents to the emergency department for evaluation of right knee injury. Ice pack is applied. Patient is given Toradol 60 mg IM for pain. X-ray of the right knee is ordered and pending. X-ray of the right knee is pending. Dr. Valencia will resume care of patient pending x-ray result. Dior De Jesus Dec 31, 2017 20:30
[2017-12-31] MEDS ORDERED: PLAV75TA29 PO (20:37)
--- NOTE | 2017-12-31 21:01 | RADRPT ---
EXAM DATE: 12/31/2017 8:58 PM EDT AGE/SEX: 57 years / Female INDICATIONS: Patient complains of right knee pain after hearing right knee pop today. CLINICAL DATA: This is the patient's initial encounter. Patient reports that signs and symptoms have been present for 1 day and indicates a pain score of 5/10. MEDICAL/SURGICAL HISTORY: None. None. COMPARISON: No prior exams available for comparison. FINDINGS: Bony structures are intact and in normal alignment. Joints are intact without dislocation. There is joint space narrowing and osteophyte formation primarily involving the lateral and patellofemoral com partments. Osseous density is normal. Probable small suprapatellar joint effusion. No radiopaque fore ign bodies seen. CONCLUSION: 1. Probable small suprapatellar joint effusion. 2. No acute fracture or dislocation. 3. Degenerative osteoarthritis of the lateral and patellofemoral compartments. Electronically signed by: Naveen Tang MD 12/31/2017 9:00 PM EDT
[2017-12-31] MEDS ORDERED: HYDR-3516 PO (21:20)
--- NOTE | 2017-12-31 21:20 | PD ---
Data Data Last Documented VS Vital Signs Date Time Temp Pulse Resp B/P (MAP) Pulse Ox O2 Delivery O2 Flow Rate FiO2 12/31/17 20:27 20 12/31/17 20:15 97.8 89 155/85 (108) 98 Orders Orders Knee, Complete (4vws) (12/31/17 ) Ice/Cold Pack (12/31/17 20:25) Ketorolac Inj (Toradol Inj) (12/31/17 20:30) MDM Supervised Visit with CHRISTOFER: Yes Narrative Course The history, exam, and medical decision-making in the associated midlevel provider note were completed with my assistance. I reviewed and agree with the findings presented. I attest that I had a [id number] encounter with the patient on the same day, and personally performed and documented my assessment and findings in the medical record. *My assessment and Findings: This is a 57-year-old female who presents to the emergency department having felt her knee pop twice today. She has an effusion on exam and on x-ray with no evidence of underlying fracture. She was advised to ice, Agustín wrap and elevate her leg and follow-up with Dr. Garay as an outpatient. Diagnosis Primary Impression: Knee sprain Qualified Codes: S83.91XA - Sprain of unspecified site of right knee, initial encounter Patient Instructions: General Instructions Additional Instruction: If you develop numbness, weakness or severe pain in your leg return to the emergency room. Follow-up with Dr. Garay as an outpatient. Med/Other Pt SpecificInfo: Prescription(s) given Scripts Hydrocodone/Acetaminophen (Hydrocodone-Acetamin 5-325 mg) 5 Mg-325 Mg Tablet 1 TAB PO Q6HR Y for PAIN SCALE 4 TO 10, #7 Prov: Aliya Valencia MD 12/31/17 Disposition: 01 DISCHARGE HOME Condition: Stable Aliya Valencia MD Dec 31, 2017 21:20
== END 2017-12-31 21:59 | disposition home or self-care (01) ==
LOC: PHEFT 20:11
DX: S83.91XA Sprain of unspecified site of right knee, initial encounter (principal); I48.91 Unspecified atrial fibrillation; F32.9 Major depressive disorder, single episode, unspecified; I25.10 Atherosclerotic heart disease of native coronary artery without angina pectoris; J44.9 Chronic obstructive pulmonary disease, unspecified; R73.03 Prediabetes; E78.00 Pure hypercholesterolemia, unspecified; I10 Essential (primary) hypertension; F17.210 Nicotine dependence, cigarettes, uncomplicated; M81.0 Age-related osteoporosis without current pathological fracture; Z95.5 Presence of coronary angioplasty implant and graft; Z79.01 Long term (current) use of anticoagulants; Z96.652 Presence of left artificial knee joint
CPT/HCPCS: 73564; 96372; 99283; E0113; J1885

== ENCOUNTER 2018-06-09 05:41 | Observation (INO) ==
--- NOTE | 2018-05-29 14:05 | MH ---
cc: Wendy Garay MD DATE OF ADMISSION: 06/09/2018 Date of admission for surgery: 06/09/2018 ADMITTING DIAGNOSIS: Osteoarthritic degeneration, right knee, now being admitted for right total knee arthroplasty. HISTORY OF PRESENT ILLNESS: This pleasant 57-year-old female is being admitted today for right total knee arthroplasty with severe painful osteoarthritic degeneration, right knee. OTHER PAST HISTORY: The patient has had a left total knee done in the past and went to [facility] for rehabilitation. The patient has history of COPD, hypertension, heart problems, back pain and depression and osteoporosis. CURRENT MEDICATIONS: Include: 1. Alendronate. 2. Allopurinol. 3. Atenolol. 4. Atorvastatin. 5. Isosorbide mononitrate. 6. Lisinopril. 7. Lyrica. PAST SURGICAL HISTORY: Other surgeries include besides the left knee replacement include ovarian removal. REVIEW OF SYSTEMS: Noncontributory. FAMILY HISTORY: Noncontributory. SOCIAL HISTORY: The patient does smoke and drinks alcohol occasionally. ALLERGIES: BACITRACIN AND MORPHINE. PHYSICAL EXAMINATION: GENERAL: We find a 57-year-old female, well-developed, well-nourished, oriented x 3, complaining of pain in her right knee. VITAL SIGNS: Blood pressure 142/70, pulse 71 and regular, respirations 18, temperature 98.4, pulse oximetry 96% on room air. HEENT: Eyes PERRLA. EOMI. Ears clear. NECK: Supple. LUNGS: Clear. HEART: Regular rate. ABDOMEN: Soft, positive bowel sounds, nontender. EXTREMITIES: Reveal the right knee crepitus on range of motion. Neurovascularly intact to toes. IMPRESSION: Severe painful osteoarthritic degeneration, right knee. PLAN: Admission for right total knee arthroplasty today. The patient was given prescription for postoperative pain and anticoagulation control in the office. Plans on going to [facility] after surgical stay in the hospital. Wendy Garay MD JRR/ct , 01:50 PM , 01:55 PM
[2018-06-09] MEDS ORDERED: Metoprolol Tartrate 25 MG Tablet PO ONE (06:19)
[2018-06-09] MEDS ORDERED: Chlorhexidine Gluconate 2% 1 Pack (2 Cloths) TOPICAL ONE (06:19)
[2018-06-09] MEDS ORDERED: Chlorhexidine 4% Topical 120 APPLIC/120 ML Bottle TOPICAL SCH (06:30)
[2018-06-09] MEDS ORDERED: ceFAZolin Inj 500 MG Vial ONE (06:43)
[2018-06-09] MEDS ORDERED: Bupivacaine Liposomal PF 1.3% Inj 20 ML Vial ONE (06:52)
[2018-06-09] MEDS ORDERED: Sodium Chlor 0.9% Inj 500 ML IV.SIG SCH (07:00)
[2018-06-09] MEDS ORDERED: Vancomycin Inj 1,000 MG in Sodium Chlor 0.9% Inj 250 ML IV.SIG SCH (07:00)
[2018-06-09] MEDS ORDERED: ceFAZolin 2 GM Premix Inj 2 GM/50 ML PIGGYBACK IV.SIG SCH (07:00)
[2018-06-09] MEDS ORDERED: fentaNYL Citrate Inj 100 MCG/2 ML Ampul ONE ×3 (07:01→10:43)
[2018-06-09] MEDS ORDERED: fentaNYL Citrate Inj 100 MCG/2 ML Ampul IV.PUSH ONE (07:15)
[2018-06-09] MEDS ORDERED: Sugammadex Inj 200 MG/2 ML Vial IV.PUSH ONE (07:26)
[2018-06-09] MEDS ORDERED: Sodium Chlor 0.9% Inj 80 ML, Bupivacaine Liposo PF 1.3% Inj 20 ML, Bupivacaine PF 0.25%... P-ARTICULR SCH ×3 (07:30)
[2018-06-09] MEDS ORDERED: SODIUM CHLOR 0.9% IV.SIG SCH (07:30)
[2018-06-09] MEDS ORDERED: TRANEXAMIC ACID IV.SIG SCH (07:30)
[2018-06-09] MEDS ORDERED: Post-op Orders (for Pharmacy) OTHER STA (07:46)
[2018-06-09] MEDS ORDERED: Bisacodyl 10 MG Supp RECTAL PRN (07:46)
[2018-06-09] MEDS ORDERED: Lidocaine PF 1% Inj 5 ML Syringe OTHER ONE (07:49)
[2018-06-09] MEDS ORDERED: Glycopyrrolate Inj 1 MG/5 ML Syringe IV.PUSH ONE (07:49)
[2018-06-09] MEDS ORDERED: Phenylephrine/NS 1000 MCG/10ML Syringe IV.PUSH ONE (07:49)
[2018-06-09] MEDS ORDERED: ALBUTEROL INH PRN (08:15)
[2018-06-09] MEDS ORDERED: [UNRECOGNIZED DRUG - OTHER] INH PRN (08:15)
[2018-06-09] MEDS ORDERED: MULTIVITAMIN MIN IRON FA VIT K PO SCH (09:00)
[2018-06-09] MEDS ORDERED: Tranexamic Acid Inj 1,000 MG in Sodium Chlor 0.9% Inj 100 ML IV.SIG SCH (10:00)
--- NOTE | 2018-06-09 10:16 | MP ---
cc: Wendy Garay MD DATE OF OPERATION: 06/09/2018 PREOPERATIVE DIAGNOSIS: Osteoarthritic degeneration, right knee POSTOPERATIVE DIAGNOSIS: Osteoarthritic degeneration, right knee. PROCEDURE PERFORMED: Right total knee arthroplasty using Consensus components, size 4 femur, size 3 tibia, and 1 patella with a 12 standard insert and 2 batches of antibiotic cement. SURGEON: Wendy Garay MD CORPORATE OPERATIONS COMPLIANCE MANAGER(S): Vibha Danielle APRN. ANESTHESIA: General intubation and block. DETAILS OF PROCEDURE: After successful induction of anesthesia, the patient is placed on the operating room table in the supine position. The knee is prepped and draped in the usual manner. A tourniquet is inflated at the upper thigh and set to 300 mmHg pressure after exsanguination of the lower extremity. A longitudinal incision is made extending from 3 inches proximal to the superior pole of the patella, across the patella in longitudinal fashion, and down past the insertion of the tibial tubercle into the proximal tibia. The incision is carried down through subcutaneous tissue along the medial aspect of the patella and retinaculum, down through the capsule to expose the knee joint. The patella and patellar tendon are freed up enough to allow the patella to be inverted and retracted off the lateral side of the knee joint. The knee joint is left exposed. Small osteophytes are removed. All soft tissue is removed to allow proper position of the femoral and tibial cutting jig guide. The first femoral jig is then inserted along the distal end of the femur after first measuring to decide whether this is a small, medium, or large component. The notch is then drilled and the tibial cutting guide inserted into the femoral cutting guide, along with the ankle brace to allow for proper measurement of the tibial cutting surface that needed to be resected. Pins are inserted into the tibial cutting jig and femoral cutting jig to hold them in place. An oscillating saw is then used to resect the surface of the tibia. The surface of the tibia is then completely removed using sharp and blunt dissection. The anterior and posterior cuts of the femur are then made as well using an oscillating saw through the cutting guide. All guides are then removed and the varus/valgus angulation cutting guide applied to the femur for proper measurement of the proper amount of valgus. The anterior cutting guide for the femur is then inserted at the anterior femoral cuts made. Next, the first block trial is inserted into the femur to allow for proper condyle drill holes to be made which are then made followed by removal of the bone between the condyles using an oscillating saw as well as the bone removed at the most posterior surface of the condyle. After this, this guide is removed and the chamfer cuts made using the chamfer cutting guide from both anterior and posterior. Next, the femoral trial is then inserted, the tibial surface reflected anterior to expose the tibial surface and a tibial stem guide is inserted after first measuring for a standard, standard plus, large, or large plus surface to be used. After the stem is impacted the trial tibial surface is applied followed by the trial meniscal components. After full range of motion is found with the appropriate length meniscal components varying the patella is prepared by resecting the posterior aspect of the patella using an oscillating saw, inserting a trial. The trial is then removed and the cruciate cutting guide applied using the bur to cut the cruciate cuts. After cruciate cuts are made all trials are removed. The wound is irrigated copiously with antibiotic solution and Water Pik and the actual components inserted into place using the aforementioned components. After the cement has hardened and the components are found to have full range of motion with no instability, the tourniquet is deflated, total tourniquet time being 48 minutes at 300 mmHg pressure. Meticulous hemostasis achieved. Then 120 mL of a mixture of Exparel, normal saline, and 0.25% Marcaine plain was inserted around the knee joint for extra pain control. Deep fascia approximated with a running #2 Quill, supplementing the me dial collateral ligament for better stability with interrupted #1 Vicryl. Subcutaneous tissue approximated with running 2-0 and 3-0 Quill and Prineo dressing and knee immobilizer. DRAINS: No drain utilized. ESTIMATED BLOOD LOSS: 100 mL. COUNTS: Sponge and suture counts were correct. DISPOSITION: The patient tolerated the procedure well and left the operating room in stable condition. Vibha Danielle APRN, was present during the entire procedure to include the patient positioning as well as the procedure itself. The medical necessity and the nurse practitioner primary teaching assistant was indicated in this case due to the surgical complexity of the case itself. During the surgical case, the ophthalmic surgical assistant was working the back table while my cardiovascular surgical tech SHAWN was directly assisting me. J. MD POOJA Williamson/kenneth , 10:00 AM , 10:06 AM
[2018-06-09] MEDS ORDERED: *HYDROmorphone PF Inj 1 MG/ML Ampul PERIprocedural Use ONLY ONE ×3 (10:43→11:56)
--- NOTE | 2018-06-09 11:30 | XR ---
EXAM DATE: 06/09/2018 11:28 AM EST AGE/SEX: 57 years / Female INDICATIONS: Post-op right knee. CLINICAL DATA: This is the patient's initial encounter. Patient reports that signs and symptoms have been present for 1 day and indicates a pain score of 0/10. MEDICAL/SURGICAL HISTORY: None. None. COMPARISON: HPO, KNEE RIGHT COMPLETE (4VWS), 12/31/2017. . FINDINGS: The patient is post right knee arthroplasty. Orthopedic hardware is in excellent position. The alignm ent is anatomic. CONCLUSION: Orthopedic hardware in excellent position. Electronically signed by: Benny Austin MD 06/09/2018 11:28 AM EST
[2018-06-09] MEDS ORDERED: diphenhydrAMINE HCl 50 MG/ML VIAL IV.PUSH ONE (13:25)
[2018-06-09] MEDS: ceFAZolin 1 GM Premix Inj 1 GM/50 ML FROZ.PIGGY IV.SIG SCH ×2 (14:00→20:09)
--- NOTE | 2018-06-09 14:12 | P.BOP ---
- Preoperative Diagnosis (1) Osteoarthritis of right knee - Postoperative Diagnosis (1) Status post total right knee replacement using cement Date of procedure: 06/09/18 Procedure: Right Total Knee Arthroplasty Implants: see implant record Anesthesia: GETA Surgeon: Yeison Garay MD Program Attendant: Vibha Danielle Estimated blood loss (mL): 100 Tourniquet time (min): 48 (300 mmHg) Urine output (mL): 0 (no slaughtre) Pathology: none sent Condition: stable Disposition: PACU
[2018-06-09] MEDS: Lisinopril 20 MG Tablet PO SCH (14:52)
[2018-06-09] MEDS: Multivitamin/Minerals Therapeutic Tablet PO SCH ×2 (14:52→20:08)
[2018-06-09] MEDS: Ezetimibe 10 MG Tablet PO SCH (14:53)
[2018-06-09] MEDS: Senna/Docusate Sodium 8.6/50 MG Tablet PO SCH ×2 (14:53→20:08)
[2018-06-09] MEDS: Pregabalin 75 MG Capsule PO SCH ×2 (15:22→20:08)
[2018-06-09] MEDS: Atenolol 50 MG Tablet PO SCH (15:29)
--- NOTE | 2018-06-09 17:50 | P.CON ---
History of Present Illness Service: [facility] Consult date: 06/09/18 Requesting Physician: Yeison Garay Reason for Consult: Multiple medical problems Primary Care Provider: Fiona Funk DO Chief Complaint: Knee replacement History of Present Illness: 57-year-old female with past medical history significant for CAD, HTN, HLD, pre- DM, COPD, renal cancer, and osteoarthritis who is been admitted today for right total knee arthroplasty. [facility] consulted to assist with medical management during her stay. Patient is seen and examined sitting up in bed in no acute distress. Denies any acute pain or discomfort at the moment. She denies any nausea, vomiting, fevers, chills, shortness of breath or chest pain. She has been able to void without any dysuria, no BM as of yet, tolerated dinner today. She voices no acute concerns or complaints at the current moment. Review of Systems All other systems reviewed negative except as stated in HPI PMFSH - History History Provided By: Patient, Medical Record - Medical History Medical History: Medical History (Last Updated 06/09/18 @ 17:48 by Izabela Weston) Anxiety Arthritis Atrial fibrillation Back pain COPD (chronic obstructive pulmonary disease) Cataracts, bilateral Chest pain Depression Diabetes Gout High blood pressure High cholesterol History of anesthesia reaction History of kidney cancer Joint pain Neck pain Osteoporosis Skin cancer Sleep apnea - Surgical History Surgical History: Surgical History (Last Reviewed 06/09/18 @ 17:49 by Izabela Weston) History of bilateral oophorectomy History of breast lump removal History of colon surgery History of coronary artery stent placement History of nephrectomy History of skin graft - Family History Family History: Family History (Last Updated 06/09/18 @ 17:49 by Izabela Weston) Mother Myocardial infarction Father Myocardial infarction - Social History I have reviewed the patient's Social History: Yes - Tobacco History Second Hand Smoke Exposure: Yes Tobacco Use In Past 30 Days: Yes Smoking Status: Current every day smoker Tobacco Type: Cigarettes - Alcohol History How Often Do You Have a Drink Containing Alcohol: 2 to 4 times a month - Substance Use History Substance History: No History of Abuse - Travel History Recent Travel in the [place] Within the Last 8 Weeks: No Recent Travel Out of the Country Within the Last 8 Weeks: No - Immunization History Hx Influenza Vaccine This Season: Yes Medications and Allergies Active Medications: Active Medications Hydrocodone Bitart/Acetaminophen ([place] 7.5/325) 1 tab PO Q4H PRN PRN Reason: PAIN LESS THAN 5 ON SCALE Hydrocodone Bitart/Acetaminophen ([place] 7.5/325) 2 tab PO Q6H PRN PRN Reason: PAIN SCALE 5 TO 10 Last Admin: 06/09/18 13:11 Dose: 2 tab Al Hydroxide/Mg Hydroxide (Milk Of [place] Liq) 30 ml PO BID PRN PRN Reason: Mild Constipation Apixaban (Eliquis) 2.5 mg PO BID [facility] Atenolol (Tenormin) 50 mg PO DAILY [facility] Last Admin: 06/09/18 15:29 Dose: Not Given Atorvastatin Calcium (Lipitor) 40 mg PO DAILY [facility] Last Admin: 06/09/18 15:29 Dose: Not Given Bisacodyl (Dulcolax Supp) 10 mg RECTAL DAILY PRN PRN Reason: SEVERE CONSITIPATION Chlorhexidine Gluconate (Hibiclens 4% Topical) 1 applicatio TOPICAL ONCE [facility] Stop: 06/13/18 06:29 Last Admin: 06/09/18 07:00 Dose: 1 applicatio Cyanocobalamin (Vitamin B12) 1,000 mcg PO DAILY [facility] Last Admin: 06/09/18 14:52 Dose: Not Given Duloxetine HCl (Cymbalta) 30 mg PO BID [facility] Last Admin: 06/09/18 14:52 Dose: Not Given Ezetimibe (Zetia) 10 mg PO DAILY [facility] Last Admin: 06/09/18 14:53 Dose: Not Given Lactated Ringer's (Lr 1000 Ml Inj) 1,000 mls @ 30 mls/hr IV.SIG .Q24H [facility] Stop: 06/10/18 06:29 Last Infusion: 06/09/18 09:20 Dose: Infused Sodium Chloride (Ns Inj) 500 mls @ 30 mls/hr IV.SIG .Q10H [facility] Cefazolin Sodium/Dextrose (Ancef 2 Gm Premix Inj) 2 gm in 50 mls @ 100 mls/hr IV.SIG TUBE HEATER [facility] Stop: 06/13/18 06:59 Last Infusion: 06/09/18 08:15 Dose: Infused Vancomycin HCl 1,000 mg/ (Sodium Chloride) 250 mls @ 250 mls/hr IV.SIG TUBE HEATER [facility] Stop: 06/12/18 06:26 Last Infusion: 06/09/18 09:05 Dose: Infused Cefazolin Sodium/Dextrose (Ancef 1 Gm Premix Inj) 1 gm in 50 mls @ 100 mls/hr IV.SIG Q6H [facility] Stop: 06/10/18 02:29 Last Infusion: 06/09/18 15:00 Dose: Infused Lactated Ringer's (Lr 1000 Ml Inj) 1,000 mls @ 80 mls/hr IV.CONT .[id number] [facility] Last Infusion: 06/09/18 15:53 Dose: 80 mls/hr Isosorbide Dinitrate (Isordil) 30 mg PO DAILY [facility] Last Admin: 06/09/18 15:29 Dose: Not Given Lactulose (Lactulose Liq) 30 ml PO DAILY PRN PRN Reason: SEVERE CONSITIPATION Lisinopril (Prinivil) 40 mg PO DAILY [facility] Last Admin: 06/09/18 14:52 Dose: Not Given Melatonin (Melatonin) 10 mg PO HS PRN PRN Reason: SLEEP Miscellaneous Information (Misc Nursing Information) 0 each OTHER UNSCH PRN PRN Reason: SEE LABEL COMMENTS Stop: 06/10/18 10:32 Multivitamins/Minerals (Theragran-M) 1 tab PO BID [facility] Stop: 08/08/18 08:59 Last Admin: 06/09/18 14:52 Dose: Not Given Nitroglycerin (Nitrostat Sl) 0.4 mg SL Q5M PRN PRN Reason: CHEST PAIN Ondansetron HCl (Zofran Odt) 4 mg PO Q6H PRN PRN Reason: NAUSEA OR VOMITING Patient Own Medication: Proair Respiclick 90 Mcg/Act Aerosol Powder Breath Activated 0 each INH Q4H PRN PRN Reason: SHORTNESS OF BREATH Pregabalin (Lyrica) 150 mg PO BID [facility] Last Admin: 06/09/18 15:22 Dose: 150 mg Senna/Docusate Sodium (Jocy-Colace) 1 tab PO BID [facility] Last Admin: 06/09/18 14:53 Dose: Not Given Sennosides (Senokot) 17.2 mg PO BID PRN PRN Reason: Moderate Constipation Sodium Chloride (Ns Flush) 2 ml IV.FLUSH BID [facility] Last Admin: 06/09/18 14:52 Dose: Not Given Sodium Chloride (Ns Flush) 2 ml IV.FLUSH PRN PRN PRN Reason: FLUSH AFTER USING IV ACCESS Allergies Allergy/AdvReac Type Severity Reaction Status Date / Time bacitracin Allergy Severe Rash Verified 06/09/18 06:17 morphine Allergy Severe Itching Verified 06/09/18 06:17 propoxyphene Allergy Severe Gastrointestinal Verified 06/09/18 06:17 Upset Home Medications Medication Instructions Recorded Confirmed Type alendronate [Fosamax] 70 mg PO QWEEK 01/25/18 06/09/18 History allopurinol 100 mg PO BID 01/25/18 06/09/18 History atenolol 50 mg PO DAILY 01/25/18 06/09/18 History atorvastatin 40 mg PO DAILY 01/25/18 06/09/18 History ezetimibe [Zetia] 10 mg PO DAILY 01/25/18 06/09/18 History isosorbide dinitrate 30 mg PO DAILY 01/25/18 06/09/18 History lisinopril 40 mg PO DAILY 01/25/18 06/09/18 History pregabalin [Lyrica] 150 mg PO BID 01/25/18 06/09/18 History albuterol sulfate [ProAir 2 puff INHALATION Q4H PRN 06/02/18 06/09/18 History RespiClick] cyanocobalamin (vitamin B-12) 1,000 mcg PO DAILY 06/02/18 06/09/18 History [Vitamin B-12] duloxetine 30 mg PO BID 06/02/18 06/09/18 History melatonin 10 mg PO HS PRN 06/02/18 06/09/18 History gveilntrivzw-emu-dbzu-FA-vit K 1 tab PO DAILY 06/02/18 06/09/18 History [Adults Multivitamin] nitroglycerin [Nitrostat] 0.4 mg SUBLINGUAL Q5-15M PRN 06/02/18 06/09/18 History Physical Exam Vital signs: Vital Signs 06/09/18 06:26 06/09/18 06:57 06/09/18 10:29 Temperature 98.8 F 98.2 F Pulse Rate 67 69 104 H Respiratory Rate 20 15 Blood Pressure 113/72 133/91 H Pulse Oximetry 96 99 87 L 06/09/18 10:30 06/09/18 10:45 06/09/18 11:00 Temperature Pulse Rate 104 H 98 H 93 H Respiratory Rate 12 22 20 Blood Pressure 147/71 H 132/59 L 119/59 L Pulse Oximetry 89 L 93 L 95 06/09/18 11:15 06/09/18 11:30 06/09/18 12:00 Temperature Pulse Rate 90 84 83 Respiratory Rate 18 14 13 Blood Pressure 115/61 111/58 L 123/67 Pulse Oximetry 96 97 95 06/09/18 13:00 06/09/18 13:30 06/09/18 14:00 Temperature Pulse Rate 85 85 87 Respiratory Rate 19 15 14 Blood Pressure 106/52 L 121/69 114/62 Pulse Oximetry 99 97 96 06/09/18 15:00 06/09/18 15:50 Temperature 97.9 F Pulse Rate 77 80 Respiratory Rate 14 20 Blood Pressure 117/62 109/54 L Pulse Oximetry 96 97 Intake & Output 06/08/18 06/09/18 06/09/18 18:59 06:59 18:59 Intake Total 4489.49 / 4489.49 Output Total 700 / 700 Balance 3789.49 / 3789.49 Weight 104.9 kg 104.9 kg Intake: IV 2849.49 / 2849.49 LR 1000 mL Inj 1,000 ML @ 80 1279 / 1279 mls/hr IV.CONT .[id number] [facility] Rx# :[id number] LR 1000 mL Inj 1,000 ML @ 30 1000 / 1000 mls/hr IV.SIG .Q24H [facility] Rx#: [id number] Cyklokapron Inj 1,000 MG In NS 220.49 / 220.49 Inj 100 ML @ 200 mls/hr IV.SIG ONCE [facility] Rx#:[id number] Vancomycin Inj 1,000 MG In NS 250 / 250 Inj 250 ML @ 250 mls/hr IV.SIG TUBE HEATER [facility] Rx#:[id number] Ancef 1 GM Premix Inj 1 gm In 50 / 50 50 ml @ 100 mls/hr IV.SIG Q6H [facility] Rx#:[id number] Ancef 2 GM Premix Inj 2 gm In 50 / 50 50 ml @ 100 mls/hr IV.SIG TUBE HEATER [facility] Rx#:[id number] Oral 240 / 240 Anesthesia Amount 1400 / 1400 Output: Urine 600 / 600 Estimated Blood Loss 100 / 100 Other: Date of Last Bowel Movement 06/08/18 Weight On Admission 104.9 kg Narrative: GENERAL: Well-developed, obese female sitting up in bed in no acute distress. SKIN: Warm and dry. HEAD: Atraumatic. Normocephalic. EYES: Pupils equal and round. No scleral icterus. No injection or drainage. ENT: No nasal bleeding or discharge. Mucous membranes pink and moist. NECK: Trachea midline. No JVD. CARDIOVASCULAR: Regular rate and rhythm. RESPIRATORY: No accessory muscle use. Clear to auscultation. Breath sounds equal bilaterally. GASTROINTESTINAL: Abdomen soft, non-tender, nondistended. + Bowel sounds MUSCULOSKELETAL: Extremities without clubbing, cyanosis, or edema. No obvious deformities. Right knee wrapped, foot with capillary refill less than 3 seconds , warm, positive movement sensation. NEUROLOGICAL: Awake, alert, oriented x3. No obvious cranial nerve deficits. Motor grossly within normal limits. Normal speech. PSYCHIATRIC: Appropriate mood and affect; insight and judgment normal. Results - Labs Labs: Laboratory Results - last 24 hr 06/09/18 06:23 Blood Type O Positive Antibody Screen Negative - Imaging Impressions Knee X-Ray 06/09/18 07:46 CONCLUSION: Orthopedic hardware in excellent position. Assessment and Plan - Plan 57-year-old female with past medical history significant for CAD, HTN, HLD, pre- DM, COPD, renal cancer, and osteoarthritis who is been admitted today for right total knee arthroplasty. [facility] consulted to assist with medical management during her stay. Osteoarthritis of the right knee - s/p total right knee arthroplasty by -PT consult -Pain control with [place] -Precautions per orthopedic surgeon -Patient would like to be discharged to [facility] once ready Hypertension, controlled -Continue lisinopril, atenolol -Continue monitoring trend and adjusting medications if needed CAD HLD -Continue statin, atenolol, isosorbide, and as needed nitro -Denies cardiac complaints COPD -Likely secondary to tobacco abuse, cessation encouraged -Oxygen saturation stable on nasal cannula, begin to wean tonight or tomorrow. DVT prophylaxis-Eliquis per orthopedic surgeon Thank you very much for this consultation, will continue to follow along. Discussed Condition With: Patient
[2018-06-09] MEDS ORDERED: Melatonin 5 MG Tablet PO PRN (21:00)
[2018-06-10] MEDS: ceFAZolin 1 GM Premix Inj 1 GM/50 ML FROZ.PIGGY IV.SIG SCH (01:43)
[2018-06-10 04:57] LABS: Hematocrit 35.9 % (35.0-46.0)
[2018-06-10] MEDS: Pregabalin 75 MG Capsule PO SCH ×2 (08:27→22:03)
[2018-06-10] MEDS: Atenolol 50 MG Tablet PO SCH (08:27)
[2018-06-10] MEDS: Multivitamin/Minerals Therapeutic Tablet PO SCH ×2 (08:27→22:02)
[2018-06-10] MEDS: Senna/Docusate Sodium 8.6/50 MG Tablet PO SCH ×2 (08:28→22:03)
[2018-06-10] MEDS: Ezetimibe 10 MG Tablet PO SCH (08:28)
[2018-06-10] MEDS: Lisinopril 20 MG Tablet PO SCH (08:31)
--- NOTE | 2018-06-10 10:55 | P.PNOP ---
Subjective Interval history: Pt having some pain in thigh and knee today. Physical Exam Vital signs: Vital Signs 06/09/18 11:00 06/09/18 11:15 06/09/18 11:30 Temperature Pulse Rate 93 H 90 84 Respiratory Rate 20 18 14 Blood Pressure 119/59 L 115/61 111/58 L Pulse Oximetry 95 96 97 06/09/18 12:00 06/09/18 13:00 06/09/18 13:30 Temperature Pulse Rate 83 85 85 Respiratory Rate 13 19 15 Blood Pressure 123/67 106/52 L 121/69 Pulse Oximetry 95 99 97 06/09/18 14:00 06/09/18 15:00 06/09/18 15:50 Temperature 97.9 F Pulse Rate 87 77 80 Respiratory Rate 14 14 20 Blood Pressure 114/62 117/62 109/54 L Pulse Oximetry 96 96 97 06/09/18 16:30 06/09/18 20:00 06/10/18 00:00 Temperature 97.8 F 97.9 F 97.9 F Pulse Rate 81 77 74 Respiratory Rate 12 20 17 Blood Pressure 120/58 L 131/74 124/57 L Pulse Oximetry 97 99 97 06/10/18 04:00 06/10/18 08:00 Temperature 98.2 F 98.6 F Pulse Rate 77 76 Respiratory Rate 18 16 Blood Pressure 150/65 H 121/58 L Pulse Oximetry 95 94 L Intake & Output 06/09/18 06/10/18 06/10/18 18:59 06:59 18:59 Intake Total 4489.49 / 4489.49 1541 / 1541 Output Total 700 / 700 Balance 3789.49 / 3789.49 1541 / 1541 Weight 104.9 kg Intake: IV 2849.49 / 2849.49 821 / 821 LR 1000 mL Inj 1,000 ML @ 80 1279 / 1279 721 / 721 mls/hr IV.CONT .[id number] [facility] Rx# :[id number] LR 1000 mL Inj 1,000 ML @ 30 1000 / 1000 mls/hr IV.SIG .Q24H [facility] Rx#: [id number] Cyklokapron Inj 1,000 MG In NS 220.49 / 220.49 Inj 100 ML @ 200 mls/hr IV.SIG ONCE [facility] Rx#:[id number] Vancomycin Inj 1,000 MG In NS 250 / 250 Inj 250 ML @ 250 mls/hr IV.SIG CABINET MAKER [facility] Rx#:[id number] Ancef 1 GM Premix Inj 1 gm In 50 / 50 100 / 100 50 ml @ 100 mls/hr IV.SIG Q6H [facility] Rx#:[id number] Ancef 2 GM Premix Inj 2 gm In 50 / 50 50 ml @ 100 mls/hr IV.SIG CABINET MAKER [facility] Rx#:[id number] Oral 240 / 240 720 / 720 Anesthesia Amount 1400 / 1400 Output: Urine 600 / 600 Estimated Blood Loss 100 / 100 Other: # Voids 2 Date of Last Bowel Movement 06/08/18 06/08/18 06/08/18 - Constitutional no acute distress Results - Labs CBC & Chem 7: 06/10/18 04:05 Laboratory Results - last 24 hr 06/10/18 04:05 Hgb 12.0 Hct 35.9 - Imaging Impressions Knee X-Ray 06/09/18 07:46 CONCLUSION: Orthopedic hardware in excellent position. Assessment and Plan - Attending Attestation Attending Attestation: Sitting up in chair. Dressing dry and intact. No calf tenderness. NV intact to toes. [facility]
--- NOTE | 2018-06-10 13:36 | P.PN ---
Subjective Interval history: Follow-up visit for right knee replacement, patient is seen and examined sitting up in wheelchair preparing to go to class. She complains of right knee pain and discomfort increased with movement. Denies any fevers, chills, nausea , vomiting or diarrhea. Voices no other acute concerns or complaints at the moment. Physical Exam Vital signs: Vital Signs 06/09/18 14:00 06/09/18 15:00 06/09/18 15:50 Temperature 97.9 F Pulse Rate 87 77 80 Respiratory Rate 14 14 20 Blood Pressure 114/62 117/62 109/54 L Pulse Oximetry 96 96 97 06/09/18 16:30 06/09/18 20:00 06/10/18 00:00 Temperature 97.8 F 97.9 F 97.9 F Pulse Rate 81 77 74 Respiratory Rate 12 20 17 Blood Pressure 120/58 L 131/74 124/57 L Pulse Oximetry 97 99 97 06/10/18 04:00 06/10/18 08:00 06/10/18 12:00 Temperature 98.2 F 98.6 F 99.3 F Pulse Rate 77 76 73 Respiratory Rate 18 16 14 Blood Pressure 150/65 H 121/58 L 93/52 L Pulse Oximetry 95 94 L 98 Intake & Output 06/09/18 06/10/18 06/10/18 18:59 06:59 18:59 Intake Total 4489.49 / 4489.49 1541 / 1541 Output Total 700 / 700 Balance 3789.49 / 3789.49 1541 / 1541 Weight 104.9 kg Intake: IV 2849.49 / 2849.49 821 / 821 LR 1000 mL Inj 1,000 ML @ 80 1279 / 1279 721 / 721 mls/hr IV.CONT .[id number] [facility] Rx# :[id number] LR 1000 mL Inj 1,000 ML @ 30 1000 / 1000 mls/hr IV.SIG .Q24H [facility] Rx#: [id number] Cyklokapron Inj 1,000 MG In NS 220.49 / 220.49 Inj 100 ML @ 200 mls/hr IV.SIG ONCE [facility] Rx#:[id number] Vancomycin Inj 1,000 MG In NS 250 / 250 Inj 250 ML @ 250 mls/hr IV.SIG FOLDER HAND [facility] Rx#:[id number] Ancef 1 GM Premix Inj 1 gm In 50 / 50 100 / 100 50 ml @ 100 mls/hr IV.SIG Q6H [facility] Rx#:[id number] Ancef 2 GM Premix Inj 2 gm In 50 / 50 50 ml @ 100 mls/hr IV.SIG FOLDER HAND [facility] Rx#:[id number] Oral 240 / 240 720 / 720 Anesthesia Amount 1400 / 1400 Output: Urine 600 / 600 Estimated Blood Loss 100 / 100 Other: # Voids 2 Date of Last Bowel Movement 06/08/18 06/08/18 06/08/18 Narrative: GENERAL: Well-developed, obese female in no acute distress. SKIN: Warm and dry. HEAD: Atraumatic. Normocephalic. EYES: Pupils equal and round. No scleral icterus. No injection or drainage. ENT: No nasal bleeding or discharge. Mucous membranes pink and moist. NECK: Trachea midline. CARDIOVASCULAR: Regular rate and rhythm. RESPIRATORY: No accessory muscle use. Clear to auscultation. Breath sounds equal bilaterally. GASTROINTESTINAL: Abdomen soft, non-tender, nondistended. + Bowel sounds MUSCULOSKELETAL: Extremities without clubbing, cyanosis, or edema. No obvious deformities. Right knee surgical incision well approximated, mild erythema and edema noted. Right foot with capillary refill less than 3 seconds, warm, positive movement sensation. NEUROLOGICAL: Awake, alert, oriented x3. No obvious cranial nerve deficits. Motor grossly within normal limits. Normal speech. PSYCHIATRIC: Appropriate mood and affect; insight and judgment normal. Results - Labs CBC & Chem 7: 06/10/18 04:05 Laboratory Results - last 24 hr 06/10/18 04:05 Hgb 12.0 Hct 35.9 Assessment and Plan - Plan 57-year-old female with past medical history significant for CAD, HTN, HLD, pre- DM, COPD, renal cancer, and osteoarthritis who is been admitted today for right total knee arthroplasty. [facility] consulted to assist with medical management during her stay. Osteoarthritis of the right knee - s/p total right knee arthroplasty by -PT consult -Pain control with [place] -Precautions per orthopedic surgeon -Case management assisting with possible discharge to [place] [facility]. Hypertension, controlled -Continue atenolol -Slightly low this morning, hold lisinopril and continue monitoring BP. CAD HLD -Continue statin, atenolol, isosorbide, and as needed nitro -Denies cardiac complaints COPD -Likely secondary to tobacco abuse, cessation encouraged -Oxygen saturation stable on room air with no complaints. DVT prophylaxis-Eliquis per orthopedic surgeon Discussed Condition With: Patient and RN
[2018-06-10 20:33] LABS: ABG Base Excess 2.4 mmol/L (-2-2); ABG PCO2 59 mmHg (38-42); ABG PO2 48 mmHg (61-120)
--- NOTE | 2018-06-10 20:48 | XR ---
EXAM DATE: 06/10/2018 8:44 PM EST AGE/SEX: 57 years / Female INDICATIONS: Short of breath. CLINICAL DATA: This is the patient's subsequent encounter. Patient reports that signs and symptoms h ave been present for 2 days and indicates a pain score of 0/10. MEDICAL/SURGICAL HISTORY: . Chronic obstructive pulmonary disease. Cardiovascular disease Renal failure, acute. Left kidney cancer. Nephrectomy, left. Total knee replacement, left. . COMPARISON: [facility] [place] [facility] [place], 10/28/2017. . FINDINGS: Lateral left hemithorax is omitted from the image. No significant new focal pleural or parenchymal ab normalities. The cardiomediastinal contours are unremarkable. Osseous structures are intact. CONCLUSION: 1. Limited evaluation of the left lung base. 2. Otherwise, no acute abnormality. Electronically signed by: Naveen Tang MD 06/10/2018 8:47 PM EST
[2018-06-11 06:56] LABS: Hematocrit 36.9 % (35.0-46.0); Hemoglobin 12.4 gm/dL (11.6-15.3)
--- NOTE | 2018-06-11 08:26 | P.PN ---
Subjective Interval history: For right total knee arthroplasty. Nurse reports patient required BiPAP overnight due to low oxygen saturation, blood gas also obtained. Patient seen and examined sitting up in bed this morning eating breakfast. History of COPD and also reports she wears BiPAP at night. States that yesterday she became short of breath. This morning she denies any further shortness of breath, cough , fevers, chills, nausea, vomiting, diarrhea, chest pain or discomfort. Physical Exam Vital signs: Vital Signs 06/10/18 12:00 06/10/18 16:00 06/10/18 20:50 Temperature 99.3 F 98.5 F Pulse Rate 73 63 Respiratory Rate 14 16 Blood Pressure 93/52 L 110/53 L Pulse Oximetry 98 96 95 06/11/18 00:00 06/11/18 00:18 06/11/18 00:21 Temperature 99.2 F Pulse Rate 78 Respiratory Rate 18 Blood Pressure 133/67 Pulse Oximetry 99 95 95 06/11/18 02:00 06/11/18 03:23 06/11/18 03:25 Temperature Pulse Rate Respiratory Rate 18 Blood Pressure Pulse Oximetry 96 96 06/11/18 04:00 Temperature 97.8 F Pulse Rate 76 Respiratory Rate 18 Blood Pressure 141/63 H Pulse Oximetry 97 Intake & Output 06/10/18 06/11/18 06/11/18 18:59 06:59 18:59 Intake Total 600 / 600 720 / 720 Balance 600 / 600 720 / 720 Weight 123.5 kg Intake: Oral 600 / 600 720 / 720 Other: # Voids 3 4 Date of Last Bowel Movement 06/08/18 06/08/18 Narrative: GENERAL: Well-developed, obese female in no acute distress. SKIN: Warm and dry. HEAD: Atraumatic. Normocephalic. EYES: Pupils equal and round. No scleral icterus. No injection or drainage. ENT: No nasal bleeding or discharge. Mucous membranes pink and moist. NECK: Trachea midline. CARDIOVASCULAR: Regular rate and rhythm. RESPIRATORY: No accessory muscle use. Clear to auscultation. Breath sounds equal bilaterally. GASTROINTESTINAL: Abdomen soft, non-tender, nondistended. + Bowel sounds MUSCULOSKELETAL: Extremities without clubbing, cyanosis, or edema. No obvious deformities. Right knee surgical incision well approximated, mild erythema and edema noted. Right foot with capillary refill less than 3 seconds, warm, positive movement sensation. NEUROLOGICAL: Awake, alert, oriented x3. No obvious cranial nerve deficits. Motor grossly within normal limits. Normal speech. PSYCHIATRIC: Appropriate mood and affect; insight and judgment normal. Results - Labs CBC & Chem 7: 06/11/18 04:39 Laboratory Results - last 24 hr 06/10/18 06/11/18 20:21 04:39 Hgb 12.4 Hct 36.9 Puncture Site Right radial Patient Temperature 98.6 O2 Saturation 80 L* ABG pH 7.30 L ABG pCO2 59 H* ABG pO2 48 L* ABG HCO3 28 H ABG O2 Content 13.5 ABG Base Excess 2.4 H ABG Methemoglobin 1.2 Jax Test Present Hemoglobin 12.1 Carboxyhemoglobin 1.9 O2 Delivery Device Nasal cannula Liter Flow 4.00 Critical Value Yes - Imaging Impressions Chest X-Ray 06/10/18 00:00 CONCLUSION: 1. Limited evaluation of the left lung base. 2. Otherwise, no acute abnormality. Assessment and Plan - Plan 57-year-old female with past medical history significant for CAD, HTN, HLD, pre- DM, COPD, renal cancer, and osteoarthritis who is been admitted today for right total knee arthroplasty. [facility] consulted to assist with medical management during her stay. Osteoarthritis of the right knee - s/p total right knee arthroplasty by -PT consult -Pain control with [place] -Precautions per orthopedic surgeon -Case management assisting with possible discharge to [place] [facility]. Hypertension, controlled -Continue atenolol, Imdur corrected and verified by pharmacist. -BP stable, continue monitoring. CAD HLD -Continue statin, atenolol, isosorbide, and as needed nitro -Denies cardiac complaints Hypercapnia with acidosis -Patient with history of COPD as well as obstructive sleep apnea who uses BiPAP at night. -ABG overnight showed pH 7.3, PCO2 59, P O2 48, bicarb 28, O2 saturation 80% on 4 L nasal cannula -Chest x-ray overnight with some limitations on left hemithorax. No focal pleural or parenchymal abnormality. -Hypercapnia likely multifactorial with respiratory depression due to narcotics. Monitor for sedation, wean narcotics as pain improves. -This morning oxygen saturation 95% on 3 L nasal cannula checked at bedside - Continue Bi-pap at bedtime. COPD -Likely secondary to tobacco abuse, cessation encouraged -Not on home oxygen, wean as tolerated. DVT prophylaxis-[place] per orthopedic surgeon Discussed Condition With: Patient and ad clerk Planning: Hopefully will be ready for DC tomorrow, patient wanting to go to [place].
[2018-06-11] MEDS: Ezetimibe 10 MG Tablet PO SCH (09:20)
[2018-06-11] MEDS: Atenolol 50 MG Tablet PO SCH (09:20)
[2018-06-11] MEDS: Multivitamin/Minerals Therapeutic Tablet PO SCH ×2 (09:21→21:38)
[2018-06-11] MEDS: Senna/Docusate Sodium 8.6/50 MG Tablet PO SCH ×2 (09:22→21:38)
[2018-06-11] MEDS: Pregabalin 75 MG Capsule PO SCH ×2 (09:23→21:37)
[2018-06-11] MEDS: Isosorbide Mononitrate 30 MG ER 24HR Tablet (Imdur) PO SCH (10:46)
--- NOTE | 2018-06-11 11:44 | P.PNOP ---
Subjective Interval history: Pt more comfortable today. Physical Exam Vital signs: Vital Signs 06/10/18 12:00 06/10/18 16:00 06/10/18 20:50 Temperature 99.3 F 98.5 F Pulse Rate 73 63 Respiratory Rate 14 16 Blood Pressure 93/52 L 110/53 L Pulse Oximetry 98 96 95 06/11/18 00:00 06/11/18 00:18 06/11/18 00:21 Temperature 99.2 F Pulse Rate 78 Respiratory Rate 18 Blood Pressure 133/67 Pulse Oximetry 99 95 95 06/11/18 02:00 06/11/18 03:23 06/11/18 03:25 Temperature Pulse Rate Respiratory Rate 18 Blood Pressure Pulse Oximetry 96 96 06/11/18 04:00 06/11/18 09:38 06/11/18 11:09 Temperature 97.8 F 97.7 F Pulse Rate 76 85 Respiratory Rate 18 17 Blood Pressure 141/63 H 169/78 H Pulse Oximetry 97 97 97 Intake & Output 06/10/18 06/11/18 06/11/18 18:59 06:59 18:59 Intake Total 1600 / 1600 720 / 720 Balance 1600 / 1600 720 / 720 Weight 123.5 kg Intake: IV 1000 / 1000 LR 1000 mL Inj 1,000 ML @ 80 1000 / 1000 mls/hr IV.CONT .[id number] [facility] Rx# :[id number] Oral 600 / 600 720 / 720 Other: # Voids 3 4 Date of Last Bowel Movement 06/08/18 06/08/18 - Constitutional no acute distress Results - Labs CBC & Chem 7: 06/11/18 04:39 Laboratory Results - last 24 hr 06/10/18 06/11/18 20:21 04:39 Hgb 12.4 Hct 36.9 Puncture Site Right radial Patient Temperature 98.6 O2 Saturation 80 L* ABG pH 7.30 L ABG pCO2 59 H* ABG pO2 48 L* ABG HCO3 28 H ABG O2 Content 13.5 ABG Base Excess 2.4 H ABG Methemoglobin 1.2 Jax Test Present Hemoglobin 12.1 Carboxyhemoglobin 1.9 O2 Delivery Device Nasal cannula Liter Flow 4.00 Critical Value Yes - Imaging Impressions Chest X-Ray 06/10/18 00:00 CONCLUSION: 1. Limited evaluation of the left lung base. 2. Otherwise, no acute abnormality. Assessment and Plan - Attending Attestation Attending Attestation: Wound clean and dry. In bed at present. Plan for [facility] soon. Cont PT.
[2018-06-12] MEDS: Isosorbide Mononitrate 30 MG ER 24HR Tablet (Imdur) PO SCH (08:47)
[2018-06-12] MEDS: Ezetimibe 10 MG Tablet PO SCH (08:47)
[2018-06-12] MEDS: Atenolol 50 MG Tablet PO SCH (08:47)
[2018-06-12] MEDS: Pregabalin 75 MG Capsule PO SCH ×2 (08:48→21:17)
[2018-06-12] MEDS: Multivitamin/Minerals Therapeutic Tablet PO SCH ×2 (08:48→21:18)
[2018-06-12] MEDS: Senna/Docusate Sodium 8.6/50 MG Tablet PO SCH ×2 (08:48→21:17)
--- NOTE | 2018-06-12 09:44 | P.PN ---
Subjective Interval history: Follow-up visit for right knee replacement, shortness of breath. Patient seen and examined sitting up in bed in no acute distress. She reports she had a better night last night and was able to sleep comfortably with BiPAP. She denies any fevers, chills, nausea, vomiting or diarrhea. Plans for discharge today to rehab once insurance authorization is obtained. Physical Exam Vital signs: Vital Signs 06/11/18 11:09 06/11/18 14:03 06/11/18 16:00 Temperature 98.6 F 98 F Pulse Rate 85 77 Respiratory Rate 17 17 Blood Pressure 114/56 L 134/60 Pulse Oximetry 97 91 L 93 L 06/11/18 19:55 06/11/18 20:00 06/11/18 20:58 Temperature 99.3 F Pulse Rate 79 Respiratory Rate 19 Blood Pressure 131/58 L Pulse Oximetry 92 L 88 L 98 06/11/18 23:50 06/12/18 04:10 06/12/18 08:06 Temperature 98.5 F 98.6 F 99.1 F Pulse Rate 62 69 86 Respiratory Rate 20 20 17 Blood Pressure 122/61 121/73 93/58 L Pulse Oximetry 100 99 92 L Intake & Output 06/11/18 06/12/18 06/12/18 18:59 06:59 18:59 Intake Total 720 / 720 Balance 720 / 720 Weight 120.6 kg Intake: Oral 720 / 720 Other: # Voids 3 3 Date of Last Bowel Movement 06/08/18 06/08/18 # Bowel Movements 0 Narrative: GENERAL: Well-developed, obese female in no acute distress. SKIN: Warm and dry. HEAD: Atraumatic. Normocephalic. EYES: No scleral icterus. No injection or drainage. ENT: No nasal bleeding or discharge. Mucous membranes pink and moist. NECK: Trachea midline. CARDIOVASCULAR: Regular rate and rhythm. RESPIRATORY: No accessory muscle use. Clear to auscultation. Breath sounds equal bilaterally. GASTROINTESTINAL: Abdomen soft, non-tender, nondistended. + Bowel sounds MUSCULOSKELETAL: Extremities without clubbing, cyanosis, or edema. No obvious deformities. Right knee surgical incision well approximated, edema, slightly improved. Right foot with capillary refill less than 3 seconds, warm, positive movement sensation. NEUROLOGICAL: Awake, alert, oriented x3. No obvious cranial nerve deficits. Motor grossly within normal limits. Normal speech. PSYCHIATRIC: Appropriate mood and affect; insight and judgment normal. Results - Labs CBC & Chem 7: 06/11/18 04:39 Assessment and Plan - Plan 57-year-old female with past medical history significant for CAD, HTN, HLD, pre- DM, COPD, renal cancer, and osteoarthritis who is been admitted today for right total knee arthroplasty. [facility] consulted to assist with medical management during her stay. Osteoarthritis of the right knee - s/p total right knee arthroplasty by -PT consult -Pain control with [facility] -Precautions per orthopedic surgeon -[facility] management [facility] Hypertension, controlled -Continue atenolol, Imdur corrected and verified by pharmacist. -BP stable, continue monitoring. CAD HLD -Continue statin, atenolol, isosorbide, and as needed nitro -Denies cardiac complaints Hypercapnia with acidosis 06/10 -Patient with history of COPD as well as obstructive sleep apnea who uses BiPAP at night. -ABG overnight showed pH 7.3, PCO2 59, P O2 48, bicarb 28, O2 saturation 80% on 4 L nasal cannula -Chest x-ray overnight with some limitations on left hemithorax. No focal pleural or parenchymal abnormality. -Hypercapnia likely multifactorial with respiratory depression due to narcotics. Monitor for sedation, wean narcotics as pain improves. -No shortness of breath, oxygen saturation stable on nasal cannula. - Continue Bi-pap at bedtime. Discussed with patient having her home BiPAP brought in for use. COPD -Likely secondary to tobacco abuse, cessation encouraged -Not on home oxygen, wean as tolerated. DVT prophylaxis-Maríaqusathya per orthopedic surgeon Discussed Condition With: Patient, RN and Discharge Planning: Discharge in place once authorization from insurance obtained.
--- NOTE | 2018-06-12 10:35 | P.PNOP ---
Subjective Interval history: Patient more comfortable today. No complaints. Physical Exam Vital signs: Vital Signs 06/11/18 11:09 06/11/18 14:03 06/11/18 16:00 Temperature 98.6 F 98 F Pulse Rate 85 77 Respiratory Rate 17 17 Blood Pressure 114/56 L 134/60 Pulse Oximetry 97 91 L 93 L 06/11/18 19:55 06/11/18 20:00 06/11/18 20:58 Temperature 99.3 F Pulse Rate 79 Respiratory Rate 19 Blood Pressure 131/58 L Pulse Oximetry 92 L 88 L 98 06/11/18 23:50 06/12/18 04:10 06/12/18 08:06 Temperature 98.5 F 98.6 F 99.1 F Pulse Rate 62 69 86 Respiratory Rate 20 20 17 Blood Pressure 122/61 121/73 93/58 L Pulse Oximetry 100 99 92 L Intake & Output 06/11/18 06/12/18 06/12/18 18:59 06:59 18:59 Intake Total 720 / 720 Balance 720 / 720 Weight 120.6 kg Intake: Oral 720 / 720 Other: # Voids 3 3 Date of Last Bowel Movement 06/08/18 06/08/18 # Bowel Movements 0 - Constitutional no acute distress Results - Labs CBC & Chem 7: 06/11/18 04:39 Assessment and Plan - Attending Attestation Attending Attestation: Dressing is dry and intact. Wound is clean and dry. She is neurovascularly intact to her toes. No calf tenderness. Patient currently in bed. Patient is ready for discharge to [facility].
[2018-06-12 20:42] VITALS: RESP 18
[2018-06-13] MEDS: Isosorbide Mononitrate 30 MG ER 24HR Tablet (Imdur) PO SCH (10:11)
[2018-06-13] MEDS: Senna/Docusate Sodium 8.6/50 MG Tablet PO SCH (10:11)
[2018-06-13] MEDS: Multivitamin/Minerals Therapeutic Tablet PO SCH (10:11)
[2018-06-13] MEDS: Ezetimibe 10 MG Tablet PO SCH (10:11)
[2018-06-13] MEDS: Pregabalin 75 MG Capsule PO SCH (10:11)
[2018-06-13] MEDS: Atenolol 50 MG Tablet PO SCH (10:12)
[2018-06-13 12:31] VITALS: BP 117/65; PULSE 72; TEMP 98.4; O2SAT 94
--- NOTE | 2018-06-13 14:13 | P.PNOP ---
Subjective Interval history: pt still painful today. Going to [facility] Physical Exam Vital signs: Vital Signs 06/12/18 15:41 06/12/18 19:25 06/12/18 20:00 Temperature 99.8 F H 98.2 F Pulse Rate 73 72 Respiratory Rate 15 18 Blood Pressure 130/61 104/57 L Pulse Oximetry 94 L 95 96 06/12/18 20:28 06/13/18 00:40 06/13/18 01:28 Temperature 97.3 F L Pulse Rate 69 Respiratory Rate 18 Blood Pressure 122/59 L Pulse Oximetry 99 100 97 06/13/18 04:00 06/13/18 04:20 06/13/18 07:55 Temperature 99.4 F 99.2 F Pulse Rate 81 83 Respiratory Rate 18 18 Blood Pressure 139/63 143/64 H Pulse Oximetry 99 97 98 06/13/18 10:10 06/13/18 12:30 Temperature 98.4 F Pulse Rate 72 Respiratory Rate 18 Blood Pressure 117/65 Pulse Oximetry 96 94 L Intake & Output 06/12/18 06/13/18 06/13/18 18:59 06:59 18:59 Intake Total 1100 / 1100 780 / 780 Balance 1100 / 1100 780 / 780 Weight 119.9 kg Intake: Oral 1100 / 1100 780 / 780 Other: # Voids 5 3 Date of Last Bowel Movement 06/12/18 06/12/18 # Bowel Movements 2 0 - Constitutional no acute distress Results - Labs CBC & Chem 7: 06/11/18 04:39 Assessment and Plan - Attending Attestation Attending Attestation: Doing well, [facility] today.
--- NOTE | 2018-06-13 14:39 | MD ---
cc: Wendy Garay MD DATE OF DISCHARGE: ADMITTING DIAGNOSIS: Osteoarthritic degeneration of right knee. DISCHARGE DIAGNOSIS: Osteoarthritic degeneration of right knee. HOSPITAL COURSE: This is a 57-year-old female who was admitted on 05/30/2018 at which time she underwent a right total knee arthroplasty. She received a course of prophylactic IV antibiotics ,within 23 hours started on anticoagulation therapy, continued to improve. Had some problems with her O2 saturations for which she had medical management and continued to improve; was discharged on the fourth postoperative day in good condition to a halfway facility for continuation of care tolerating food and fluids well on p.o. pain medications. Wendy Garay MD JRR/ld , 02:14 PM , 02:20 PM
== END 2018-06-13 16:59 ==
LOC: HSDI 05:41 → HOR 05:41 → EDSTATUS 07:30 → N06 16:08
PROVIDERS: ADMIT Surgery; ATTEND Surgery